=== PATIENT | male | born 1955 | race Caucasian/White ===

== ENCOUNTER 2022-01-01 18:32 | Inpatient (IN) | payer OTHER, MEDICARE ==
[2022-01-01] MEDS ORDERED: SODIUM CHLORIDE 0.9% 500 ML 500 ML IV STA (19:06)
[2022-01-01] MEDS ORDERED: ACETAMINOPHEN TAB 500 MG TAB PO STA (19:31)
[2022-01-01 19:58] LABS: Basophils # (A) 0.1 k/uL (0-0.2); Basophils % (A) 1 %; Eosinophils # (A) 0.5 k/uL (0-0.7); Eosinophils % (A) 5 %; HCT 38.8 % (39.0-53.0); HGB 12.7 gm/dL (13.0-17.5); Hypochromasia Slight; Lymphocytes % (A) 10 %; MCHC 32.7 g/dL (31.0-37.0); MCV 88.9 fL (80.0-100.0); Mean Platelet Volume 8.2; Monocytes # (A) 0.5 k/uL (0-1.0); Monocytes % (A) 5 %; Neutrophils # (A) 7.9 k/uL (1.3-7.7); Neutrophils % (A) 77 %; Platelet Count 208 k/uL (150-450); RBC 4.37 m/uL (4.30-5.90); RDW 15.2 % (11.5-15.5); WBC 10.3 k/uL (3.8-10.6)
[2022-01-01 20:08] LABS: Albumin 3.5 g/dL (3.5-5.0); Calcium 9.1 mg/dL (8.4-10.2); Magnesium 2.1 mg/dL (1.6-2.3); Phosphorus 5.2 mg/dL (2.5-4.5); Total Bilirubin 0.5 mg/dL (0.2-1.3); Total Protein 6.9 g/dL (6.3-8.2)
[2022-01-01 20:11] LABS: Potassium 5.1 mmol/L (3.5-5.1)
[2022-01-01] MEDS ORDERED: SODIUM CHLORIDE 0.9% 2,000 ML IV ONE (20:14)
[2022-01-01] MEDS ORDERED: SODIUM CHLORIDE 0.9% 1,000 ML IV SCH (20:15)
--- NOTE | 2022-01-01 20:47 | XR ---
EXAMINATION TYPE: XR chest 2V DATE OF EXAM: 01/01/2022 8:15 PM COMPARISON: None TECHNIQUE: XR chest 2V . CLINICAL INDICATION:Male, 66 years old with history of Weakness; FINDINGS: Lungs/Pleura: Bilateral scattered coarse reticular changes to the interstitium. There is a hazy appea ayden of the left lung base with focal, patchy consolidation within the left midlung. No evidence of pneumothorax or sizable pleural effusion. Pulmonary vascularity: Mild pulmonary vascular congestion. Heart/mediastinum: Cardiomediastinal silhouette is prominent in size. Atherosclerotic calcifications are seen in the aorta. Musculoskeletal: No acute osseous pathology. Midline sternotomy wires are noted and stable. IMPRESSION: 1. Left midlung interstitial opacity, concerning for acute infectious process such as pneumonia. 2. Prominent cardiac silhouette with mild pulmonary vascular congestion.
[2022-01-01 20:51] LABS: INR 0.9 (<1.2); Partial Thromboplastin Time 24.4 sec (22.0-30.0); Prothrombin Time 10.1 sec (9.0-12.0)
[2022-01-01] MEDS ORDERED: cefTRIAXone IN SWFI 1,000 MG/10 ML SYRINGE IVP STA (21:04)
[2022-01-01] MEDS ORDERED: AZITHROMYCIN 500 MG in SODIUM CHLORIDE 0.9% 250 ML IVPB ONE (21:30)
--- NOTE | 2022-01-01 21:55 | ED ---
General Adult HPI - General Chief complaint: Shortness of Breath Stated complaint: nausea Time Seen by Provider: 01/01/22 19:02 Source: patient, EMS Mode of arrival: EMS Limitations: no limitations - History of Present Illness Initial comments: Patient is a 66-year-old male presenting with chief complaint of generalized weakness. Patient was at the [facility] earlier today when he felt an overwhelming sense of weakness. He also admitted to some difficulty breathing and a productive cough. Patient has no known medical history, however patient is a poor historian. Patient admits to nausea. Denies chest pain, vomiting, abdominal pain, numbness, tingling, unilateral weakness, limb pain, dysuria, hematuria, flank pain, fever, chills. - Related Data Home Medications Medication Instructions Recorded Confirmed No Known Home Medications 01/01/22 01/01/22 Allergies Allergy/AdvReac Type Severity Reaction Status Date / Time No Known Allergies Allergy Verified 01/01/22 22:04 Review of Systems ROS Statement: Those systems with pertinent positive or pertinent negative responses have been documented in the HPI. ROS Other: All systems not noted in ROS Statement are negative. General Exam Limitations: no limitations General appearance: in no apparent distress, lethargic Head exam: Present: atraumatic, normocephalic, normal inspection Eye exam: Present: PERRL, EOMI, conjunctival injection. Absent: periorbital swelling, periorbital tenderness Neck exam: Present: normal inspection, full ROM Respiratory exam: Present: wheezes, rales. Absent: respiratory distress, rhonchi, stridor Cardiovascular Exam: Present: regular rate, normal rhythm, normal heart sounds. Absent: systolic murmur, diastolic murmur, rubs, gallop, clicks GI/Abdominal exam: Present: soft, distended. Absent: tenderness, guarding, rebound, rigid Neurological exam: Present: alert, oriented X3, CN II-XII intact Psychiatric exam: Present: normal affect, normal mood Skin exam: Present: warm, dry, intact, normal color. Absent: rash Course Vital Signs 01/01/22 18:41 Temperature 99.3 F Pulse Rate 100 Respiratory 20 Rate Blood Pressure 122/74 O2 Sat by Pulse 93 L Oximetry EKG Findings - EKG Comments: EKG Findings:: Rate of 99. MI interval difficult to determine, there appears to be frequent PACs causing this. EKG reading of atrial flutter does not appear to be accurate, there appears to be a P wave for a PAC in front of each QRS complex. No sawtooth pattern. QRS duration 105. QT/QTC 377/433. No ST deviation. T-wave inversion in aVL. Medical Decision Making - Medical Decision Making Patient is a 66-year-old male presenting with chief complaint of generalized weakness, difficulty breathing, nonproductive cough. On examination there are some wheezes and rales heard on auscultation. EKG is slightly tachycardic with rate of 99, there appeared to be frequent PACs. Creatinine 3.90 and BUN 64, will hydrate. Chest x-ray is suggestive of pneumonia, treated with azithromycin and Rocephin. Phosphorus 5.2. Troponin 0.024. BNP 3930. Patient will be admitted for pneumonia and BO. I spoke with Dr. Nails who agreed to admit the patient. I discussed these findings with plan with the patient he was agreeable. I discussed this case with my attending Dr. Mccann. - Lab Data Result diagrams: 01/01/22 19:48 01/01/22 19:48 Lab Results 01/01/22 01/01/22 01/01/22 Range/Units 19:48 19:48 19:48 WBC 10.3 (3.8-10.6) k/uL RBC 4.37 (4.30-5.90) m/uL Hgb 12.7 L (13.0-17.5) gm/dL Hct 38.8 L (39.0-53.0) % MCV 88.9 (80.0-100.0) fL MCH 29.0 (25.0-35.0) pg MCHC 32.7 (31.0-37.0) g/dL RDW 15.2 (11.5-15.5) % Plt Count 208 (150-450) k/uL MPV 8.2 Neutrophils % 77 % Lymphocytes % 10 % Monocytes % 5 % Eosinophils % 5 % Basophils % 1 % Neutrophils # 7.9 H (1.3-7.7) k/uL Lymphocytes # 1.0 (1.0-4.8) k/uL Monocytes # 0.5 (0-1.0) k/uL Eosinophils # 0.5 (0-0.7) k/uL Basophils # 0.1 (0-0.2) k/uL Hypochromasia Slight PT 10.1 (9.0-12.0) sec INR 0.9 (<1.2) APTT 24.4 (22.0-30.0) sec Sodium 137 (137-145) mmol/L Potassium 5.1 (3.5-5.1) mmol/L Chloride 102 (98-107) mmol/L Carbon Dioxide 23 (22-30) mmol/L Anion Gap 12 mmol/L BUN 64 H (9-20) mg/dL Creatinine 3.98 H (0.66-1.25) mg/dL Est GFR (CKD-EPI)AfAm 17 (>60 ml/min/1.73 sqM) Est GFR (CKD-EPI)NonAf 15 (>60 ml/min/1.73 sqM) Glucose 264 H (74-99) mg/dL Plasma Lactic Acid Silas (0.7-2.0) mmol/L Calcium 9.1 (8.4-10.2) mg/dL Phosphorus 5.2 H (2.5-4.5) mg/dL Magnesium 2.1 (1.6-2.3) mg/dL Total Bilirubin 0.5 (0.2-1.3) mg/dL AST 27 (17-59) U/L ALT 16 (4-49) U/L Alkaline Phosphatase 90 (38-126) U/L Troponin I (0.000-0.034) ng/mL NT-Pro-B Natriuret Pep pg/mL Total Protein 6.9 (6.3-8.2) g/dL Albumin 3.5 (3.5-5.0) g/dL Coronavirus (PCR) (Not Detectd) 01/01/22 01/01/22 01/01/22 Range/Units 19:48 19:48 19:48 WBC (3.8-10.6) k/uL RBC (4.30-5.90) m/uL Hgb (13.0-17.5) gm/dL Hct (39.0-53.0) % MCV (80.0-100.0) fL MCH (25.0-35.0) pg MCHC (31.0-37.0) g/dL RDW (11.5-15.5) % Plt Count (150-450) k/uL MPV Neutrophils % % Lymphocytes % % Monocytes % % Eosinophils % % Basophils % % Neutrophils # (1.3-7.7) k/uL Lymphocytes # (1.0-4.8) k/uL Monocytes # (0-1.0) k/uL Eosinophils # (0-0.7) k/uL Basophils # (0-0.2) k/uL Hypochromasia PT (9.0-12.0) sec INR (<1.2) APTT (22.0-30.0) sec Sodium (137-145) mmol/L Potassium (3.5-5.1) mmol/L Chloride (98-107) mmol/L Carbon Dioxide (22-30) mmol/L Anion Gap mmol/L BUN (9-20) mg/dL Creatinine (0.66-1.25) mg/dL Est GFR (CKD-EPI)AfAm (>60 ml/min/1.73 sqM) Est GFR (CKD-EPI)NonAf (>60 ml/min/1.73 sqM) Glucose (74-99) mg/dL Plasma Lactic Acid Silas 1.4 (0.7-2.0) mmol/L Calcium (8.4-10.2) mg/dL Phosphorus (2.5-4.5) mg/dL Magnesium (1.6-2.3) mg/dL Total Bilirubin (0.2-1.3) mg/dL AST (17-59) U/L ALT (4-49) U/L Alkaline Phosphatase (38-126) U/L Troponin I 0.024 (0.000-0.034) ng/mL NT-Pro-B Natriuret Pep 3930 pg/mL Total Protein (6.3-8.2) g/dL Albumin (3.5-5.0) g/dL Coronavirus (PCR) (Not Detectd) 01/01/22 Range/Units 19:48 WBC (3.8-10.6) k/uL RBC (4.30-5.90) m/uL Hgb (13.0-17.5) gm/dL Hct (39.0-53.0) % MCV (80.0-100.0) fL MCH (25.0-35.0) pg MCHC (31.0-37.0) g/dL RDW (11.5-15.5) % Plt Count (150-450) k/uL MPV Neutrophils % % Lymphocytes % % Monocytes % % Eosinophils % % Basophils % % Neutrophils # (1.3-7.7) k/uL Lymphocytes # (1.0-4.8) k/uL Monocytes # (0-1.0) k/uL Eosinophils # (0-0.7) k/uL Basophils # (0-0.2) k/uL Hypochromasia PT (9.0-12.0) sec INR (<1.2) APTT (22.0-30.0) sec Sodium (137-145) mmol/L Potassium (3.5-5.1) mmol/L Chloride (98-107) mmol/L Carbon Dioxide (22-30) mmol/L Anion Gap mmol/L BUN (9-20) mg/dL Creatinine (0.66-1.25) mg/dL Est GFR (CKD-EPI)AfAm (>60 ml/min/1.73 sqM) Est GFR (CKD-EPI)NonAf (>60 ml/min/1.73 sqM) Glucose (74-99) mg/dL Plasma Lactic Acid Silas (0.7-2.0) mmol/L Calcium (8.4-10.2) mg/dL Phosphorus (2.5-4.5) mg/dL Magnesium (1.6-2.3) mg/dL Total Bilirubin (0.2-1.3) mg/dL AST (17-59) U/L ALT (4-49) U/L Alkaline Phosphatase (38-126) U/L Troponin I (0.000-0.034) ng/mL NT-Pro-B Natriuret Pep pg/mL Total Protein (6.3-8.2) g/dL Albumin (3.5-5.0) g/dL Coronavirus (PCR) Not Detected (Not Detectd) Disposition Clinical Impression: Pneumonia, BO (acute kidney injury) Disposition: ADMITTED IP TO THIS HOSP Condition: Fair Referrals: [facility],Clinic [Primary Care Provider] - 1-2 days Time of Disposition: 21:56 Decision to Admit Reason: Admit from EC Decision Date: 01/01/22 Decision Time: 21:56
[2022-01-01] MEDS ORDERED: ACETAMINOPHEN TAB 325 MG TAB PO PRN (21:56)
[2022-01-01] MEDS ORDERED: NALOXONE 0.4 MG/ML 1 ML VIAL IV PRN (21:56)
[2022-01-01] MEDS ORDERED: IPRATROPIUM-ALBUTEROL 3 ML NEB INHALATION STA (22:19)
--- NOTE | 2022-01-02 03:00 | P.HPIM ---
History of Present Illness H&P Date: 01/01/22 Chief Complaint: SOB , weakness 66 year old male , with CKD unknown baseline, DM , quadruple bypass patient did not want to come today or stay at the hospital. 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 he declined calling ambulance and drove himself here for evaluation. he is very poor historian. and provides very limited history he reports being homeless, but moved into a motel a year ago, he claims to be compliant with his meds, which he does not recall. he reports history of CKD with unknown baseline. and CHF. he denies any smoking , illicit drugs or alcohol . he reports some progressive SOB over long time, and generalized weakness over past few weeks. he is experiencing exertional dyspnea , and orthopnea. but denies any chest pain or coughing, he denies any fever , chills, nausea or vomiting denies any URI symptoms, denies abd pain , nausea or vomiting, denies any GI bleeding, or changes with his bowel or urinary habits. he denies any recent travel, hospital stay , or history of cancer or blood clots. workup in the ED showed no fever, normal WBC, elevated BUN Cr unknown baseline. COVID negative CXR showed pulmonary vascular congestion Review of Systems Pertinent positives as noted in HPI. All other systems were reviewed and are negative Past Medical History Past Medical History: Diabetes Mellitus, Hyperlipidemia, Hypertension History of Any Multi-Drug Resistant Organisms: None Reported Past Surgical History: Coronary Bypass/CABG Additional Past Surgical History / Comment(s): CABG X3 Past Psychological History: No Psychological Hx Reported Smoking Status: Unknown if ever smoked - Past Family History family Additional Family Medical History / Comment(s): dementia and cancer in his mother and father respectively Medications and Allergies Home Medications Medication Instructions Recorded Confirmed Type No Known Home Medications 01/01/22 01/01/22 History Allergies Allergy/AdvReac Type Severity Reaction Status Date / Time No Known Allergies Allergy Verified 01/01/22 22:04 Physical Exam Vitals: Vital Signs Temp Pulse Resp BP Pulse Ox 01/02/22 00:16 89 17 149/87 98 01/02/22 00:08 100 01/01/22 23:46 100 01/01/22 18:41 99.3 F 100 20 122/74 93 L Intake and Output 01/01/22 01/01/22 01/02/22 14:59 22:59 06:59 Other: Weight 158.757 kg 158.757 kg Constitutional: No acute distress, very hard of hearing, disheveled Eyes: Anicteric sclerae, moist conjunctiva, Pupils equal round reactive to light ENMT: NC/AT Oropharynx clear, no erythema, or exudates Neck: Supple, no masses, or JVD No carotid bruits No thyromegaly Lungs: decrease breath sounds at lung bases with inspiratory rales Clear to percussion Normal respiratory effort, no accessory muscle use Cardiovascular: Heart regular in rate and rhythm, No murmurs, gallops, or rubs +2 peripheral edema Abdominal: Soft, obese limiting exam Nontender, no guarding, rebound or rigidity Abdomen moving with respiration Normoactive bowel sounds No palpable mass No abdominal wall hernia noted Skin: Normal temperature, tone, texture, turgor No induration No subcutaneous nodules No rash, lesions No ulcers Extremities: No digital cyanosis No clubbing Pedal pulses intact and symmetrical Radial pulses intact and symmetrical No calf tenderness Psychiatric: Alert and oriented to person, place and time Neuro Muscles Strength 4/5 in all 4 extremities Sensation to light touch grossly present throughout Cranial nerves II-XII grossly intact No focal sensory deficits Lymphatics: no palpable cervical or supraclavicular , or inguinal lymph nodes Results CBC & Chem 7: 01/01/22 19:48 01/01/22 19:48 Labs: Abnormal Lab Results - Last 24 Hours (Table) 01/01/22 01/01/22 Range/Units 19:48 19:48 Hgb 12.7 L (13.0-17.5) gm/dL Hct 38.8 L (39.0-53.0) % Neutrophils # 7.9 H (1.3-7.7) k/uL BUN 64 H (9-20) mg/dL Creatinine 3.98 H (0.66-1.25) mg/dL Glucose 264 H (74-99) mg/dL Phosphorus 5.2 H (2.5-4.5) mg/dL Thrombosis Risk Factor Assmnt - Choose All That Apply Each Factor Represents 1 point: Obesity (BMI >25), Swollen legs (current) Thrombosis Risk Factor Assessment Total Risk Factor Score: 2 Thrombosis Risk Factor Assessment Level: Low Risk Assessment and Plan Assessment: progressive shortness of breath, generalized weakness, fluid over load with advanced renal disease, rule out CHF d/c IVF initiate lasix 40 mg IVP BID daily weight check echocardiogram CXR showed pulmonary vascular congestion patient given antibiotics for suspected pneumonia , patient does not have full clinical picture, will discontinue antibiotics no fever, no leukocytosis , no report of coughing follow up cultures monitor vital signs covid negative BO on ?CKD unknown baseline avoid nephrotoxic meds monitor renal function and urine output DM , hyperglycemia insulin sliding scale check A1c chronic conditions CAD s/p quadruple bypass hypertension unknown home meds DVT PPX heparin sc tid full code
[2022-01-02 03:02] LABS: Glucose,Whole Blood 242 mg/dL (70-110)
[2022-01-02] MEDS ORDERED: INSULIN ASPART (NovoLOG) 100 UNIT/ML VIAL SQ ONE (03:17)
[2022-01-02] MEDS: FUROSEMIDE 10 MG/ML 4 ML VIAL IV SCH ×2 (03:41→08:31)
[2022-01-02 06:41] LABS: Basophils % (A) 1 %; Eosinophils # (A) 0.3 k/uL (0-0.7); Eosinophils % (A) 5 %; HCT 34.8 % (39.0-53.0); HGB 11.3 gm/dL (13.0-17.5); Hypochromasia Slight; Lymphocytes # (A) 1.1 k/uL (1.0-4.8); Lymphocytes % (A) 15 %; MCH 28.5 pg (25.0-35.0); MCHC 32.3 g/dL (31.0-37.0); MCV 88.2 fL (80.0-100.0); Mean Platelet Volume 8.2; Monocytes # (A) 0.6 k/uL (0-1.0); Monocytes % (A) 8 %; Neutrophils % (A) 70 %; Platelet Count 138 k/uL (150-450); RBC 3.95 m/uL (4.30-5.90); WBC 7.1 k/uL (3.8-10.6)
[2022-01-02 06:51] LABS: ALT 12 U/L (4-49); AST 14 U/L (17-59); African American GFR (CKD) 17 (>60 ml/min/1.73 sqM); Albumin 2.7 g/dL (3.5-5.0); Alkaline Phosphatase 88 U/L (38-126); Anion Gap 8 mmol/L; Blood Urea Nitrogen 58 mg/dL (9-20); Calcium 8.1 mg/dL (8.4-10.2); Carbon Dioxide 24 mmol/L (22-30); Chloride 106 mmol/L (98-107); Glucose 245 mg/dL (74-99); Non-African American GFR(CKD) 15 (>60 ml/min/1.73 sqM); Potassium 4.5 mmol/L (3.5-5.1); Sodium 138 mmol/L (137-145); Total Bilirubin <0.1 mg/dL (0.2-1.3); Total Protein 5.5 g/dL (6.3-8.2)
[2022-01-02 07:26] LABS: Amorphous Sediment,Urine Occasional /hpf; Appearance,Urine Cloudy (Clear); Bilirubin,Urine Negative (Negative); Blood,Urine Large (Negative); Color,Urine Light Yellow; Glucose,Urine (UA) 4+ (Negative); Hyaline Casts,Urine 4 /lpf (0-2); Ketones,Urine Negative (Negative); Leukocyte Esterase,Urine Negative (Negative); Mucus,Urine Rare /hpf; Nitrite,Urine Negative (Negative); Protein,Urine 3+ (Negative); RBC,Urine 36 /hpf (0-5); Specific Gravity,Urine 1.012 (1.001-1.035); Squamous Epithelial Cell,Urine 1 /hpf (0-4); Urobilinogen,Urine <2.0 mg/dL (<2.0); WBC,Urine 3 /hpf (0-5)
[2022-01-02 07:49] LABS: Glucose,Whole Blood 241 mg/dL (70-110)
[2022-01-02] MEDS ORDERED: HEPARIN SODIUM,PORCINE/PF 5,000 UNIT/0.5 ML SYRINGE SQ SCH (08:00)
[2022-01-02] MEDS: INSULIN ASPART (NovoLOG) 100 UNIT/ML VIAL SQ SCH ×2 (08:31→13:19)
[2022-01-02 08:36] VITALS: BP 182/92; PULSE 82; RESP 20; TEMP 98.2
[2022-01-02] MEDS ORDERED: METOPROLOL SUCCINATE (ER) 25 MG TAB.ER.24H PO SCH (09:00)
[2022-01-02] MEDS ORDERED: APIXABAN 5 MG TAB PO SCH (09:00)
[2022-01-02] MEDS ORDERED: ASPIRIN 81 MG PO SCH (09:00)
--- NOTE | 2022-01-02 11:11 | P.CRDCN ---
History of Present Illness Consult date: 01/02/22 Consult reason: shortness of breath History of present illness: The patient is a 66-year-old male who presented to the emergency room with increased shortness of breath. The patient is a poor historian and states he's been short of breath for quite some time, however recently worsened. 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 He is unsure of his home medication regimen. He states he is currently not having any chest pain or chest pressure. DIAGNOSTICS: EKG shows rate controlled atrial fibrillation Chest x-ray shows left midlung interstitial opacity and mild pulmonary vascular congestion Lab data: WBC 7.1, hemoglobin 11.3, hematocrit 34.8, platelet 138, sodium 138, potassium 4.5, BUN 58, creatinine 3.95, AST 12, ALT 88, troponin 0.02, BNP 3930 PAST MEDICAL HISTORY: Diabetes, coronary artery disease REVIEW OF SYSTEMS: No fever or chills. No cough or expectoration. No diaphoresi s. Patient denies headache, dizziness, blurred vision, double vision. Patient denies any stomach discomfort. No nausea, vomiting. No hematochezia. No hematemesis. Denies any black stools or blood in his stools. Denies dysuria or hematuria. No muscle weakness or numbness. No chest pain. PHYSICAL EXAMINATION: This is a 66-year-old obese male in no apparent distress at the time of my examination. HEENT: Head is atraumatic, normocephalic. Pupils are equal, round. Sclerae anicteric. Conjunctivae are clear. Mucous membranes of the mouth are moist. There is no jugular venous distention. No carotid bruit is heard. CHEST EXAMINATION: Lungs are diminished to auscultation. No chest wall tenderness is noted on palpation or with deep breathing. HEART EXAMINATION: Iregular rate and rhythm. S1, S2 heard. No murmurs, gallops or rub. ABDOMEN: Soft, nontender. Bowel sounds are heard. No organomegaly noted. EXTREMITIES: Weak peripheral pulses. +2 pitting peripheral edema and no calf tenderness noted. NEUROLOGIC EXAMINATION: Patient is awake, alert and oriented x2. FINAL ASSESSMENT AND PLAN: Shortness of breath, multifactorial, CHF versus pulmonary etiology Atrial fibrillation, rate controlled History of coronary artery disease History of diabetes Chronic kidney disease PLAN: Start the patient on Eliquis 5 mg twice daily. [facility], therefore this medication should be covered Start low-dose beta rohini Start aspirin and statin Echocardiogram pending Further recommendations based on clinical course I am dictating on behalf of Dr Cristhian Reich's history/physical and assessment/plan. Past Medical History Past Medical History: Diabetes Mellitus, Hyperlipidemia, Hypertension History of Any Multi-Drug Resistant Organisms: None Reported Past Surgical History: Coronary Bypass/CABG Additional Past Surgical History / Comment(s): CABG X3 Past Psychological History: No Psychological Hx Reported Smoking Status: Unknown if ever smoked - Past Family History family Additional Family Medical History / Comment(s): dementia and cancer in his mother and father respectively Medications and Allergies Home Medications Medication Instructions Recorded Confirmed Type No Known Home Medications 01/01/22 01/01/22 History Allergies Allergy/AdvReac Type Severity Reaction Status Date / Time No Known Allergies Allergy Verified 01/01/22 22:04 Physical Exam Vitals: Vital Signs Temp Pulse Pulse Resp BP BP Pulse Ox 01/02/22 08:00 98.2 F 82 20 182/92 91 L 01/02/22 02:00 97.2 F L 53 L 17 156/73 94 L 01/02/22 00:16 89 17 149/87 98 01/02/22 00:08 100 01/01/22 23:46 100 01/01/22 18:41 99.3 F 100 20 122/74 93 L Intake and Output 01/01/22 01/02/22 01/02/22 22:59 06:59 14:59 Intake Total 200 Output Total 300 Balance -100 Intake: Oral 200 Output: Urine 300 Other: Voiding Method Toilet Toilet Urinal Urinal Weight 158.757 kg 158.757 kg Results 01/02/22 06:08 01/02/22 06:08 Cardiac Enzymes 01/01/22 01/01/22 01/02/22 Range/Units 19:48 19:48 06:08 AST 27 14 L (17-59) U/L Troponin I 0.024 (0.000-0.034) ng/mL Coagulation 01/01/22 Range/Units 19:48 PT 10.1 (9.0-12.0) sec APTT 24.4 (22.0-30.0) sec CBC 01/01/22 01/02/22 Range/Units 19:48 06:08 WBC 10.3 7.1 (3.8-10.6) k/uL RBC 4.37 3.95 L (4.30-5.90) m/uL Hgb 12.7 L 11.3 L (13.0-17.5) gm/dL Hct 38.8 L 34.8 L (39.0-53.0) % Plt Count 208 138 L (150-450) k/uL Comprehensive Metabolic Panel 01/01/22 01/02/22 Range/Units 19:48 06:08 Sodium 137 138 (137-145) mmol/L Potassium 5.1 4.5 (3.5-5.1) mmol/L Chloride 102 106 (98-107) mmol/L Carbon Dioxide 23 24 (22-30) mmol/L BUN 64 H 58 H (9-20) mg/dL Creatinine 3.98 H 3.95 H (0.66-1.25) mg/dL Glucose 264 H 245 H (74-99) mg/dL Calcium 9.1 8.1 L (8.4-10.2) mg/dL AST 27 14 L (17-59) U/L ALT 16 12 (4-49) U/L Alkaline Phosphatase 90 88 (38-126) U/L Total Protein 6.9 5.5 L (6.3-8.2) g/dL Albumin 3.5 2.7 L (3.5-5.0) g/dL Current Medications Generic Name Dose Route Start Last Admin Trade Name Freq PRN Reason Stop Dose Admin Acetaminophen 650 mg 01/01/22 21:56 Acetaminophen Tab 325 Mg Tab PO Q6HR PRN Mild Pain or Fever > 100.5 Apixaban 5 mg 01/02/22 09:00 01/02/22 10:31 Apixaban 5 Mg Tab PO 5 mg BID NADER Administration Protocol Aspirin 81 mg 01/02/22 09:00 01/02/22 10:31 Aspirin 81 Mg PO 81 mg DAILY NADER Administration Furosemide 40 mg 01/02/22 02:44 01/02/22 08:31 Furosemide 10 Mg/Ml 4 Ml Vial IV 40 mg Q12HR NADER Administration Insulin Aspart 0 unit 01/02/22 07:30 01/02/22 08:31 Insulin Aspart (Novolog) 100 Unit/Ml Vial SQ 4 unit ACHS NADER Administration Protocol Metoprolol Succinate 25 mg 01/02/22 09:00 01/02/22 10:31 Metoprolol Succinate (Er) 25 Mg Tab.Er.24h PO 25 mg DAILY NADER Administration Naloxone HCl 0.2 mg 01/01/22 21:56 Naloxone 0.4 Mg/Ml 1 Ml Vial IV Q2M PRN Opioid Reversal Intake and Output 01/01/22 01/02/22 01/02/22 22:59 06:59 14:59 Intake Total 200 Output Total 300 Balance -100 Intake: Oral 200 Output: Urine 300 Other: Voiding Method Toilet Toilet Urinal Urinal Weight 158.757 kg 158.757 kg 01/02/22 06:08 01/02/22 06:08
--- NOTE | 2022-01-02 11:22 | P.NPCON ---
History of Present Illness - Reason for Consult acute renal failure - History of Present Illness Patient is a 66-year-old male with history of type 2 diabetes coronary artery disease and obesity. He is admitted to the hospital with complaints of increased weakness while he was at [facility]. Patient stated that he was so weak that he could not get up. He denied any lightheadedness or dizziness. Patient admits to history of chronic kidney disease but previous labs not available for comparison. Serum creatinine was 3.9 on admission and remains the same today. Patient is currently being diuresed for volume overload. Blood pressure has not been low O2 sats of 91-94% on room air No history of NSAIDs prior to admission Currently voiding in the urinal Review of Systems As per HPI Past Medical History Past Medical History: Diabetes Mellitus, Hyperlipidemia, Hypertension History of Any Multi-Drug Resistant Organisms: None Reported Past Surgical History: Coronary Bypass/CABG Additional Past Surgical History / Comment(s): CABG X3 Past Psychological History: No Psychological Hx Reported Smoking Status: Unknown if ever smoked - Past Family History family Additional Family Medical History / Comment(s): dementia and cancer in his mother and father respectively Medications and Allergies Home Medications Medication Instructions Recorded Confirmed Type No Known Home Medications 01/01/22 01/01/22 History Allergies Allergy/AdvReac Type Severity Reaction Status Date / Time No Known Allergies Allergy Verified 01/01/22 22:04 Physical Exam Vitals: Vital Signs Temp Pulse Pulse Resp BP BP Pulse Ox 01/02/22 08:00 98.2 F 82 20 182/92 91 L 01/02/22 02:00 97.2 F L 53 L 17 156/73 94 L 01/02/22 00:16 89 17 149/87 98 01/02/22 00:08 100 01/01/22 23:46 100 01/01/22 18:41 99.3 F 100 20 122/74 93 L Intake and Output 01/01/22 01/02/22 01/02/22 22:59 06:59 14:59 Intake Total 200 Output Total 300 Balance -100 Intake: Oral 200 Output: Urine 300 Other: Voiding Method Toilet Toilet Urinal Urinal Weight 158.757 kg 158.757 kg Patient is awake, comfortable Morbidly obese Alert oriented 3 Examination of the heart S1 and S2 Examination of the lungs bilateral breath sounds are heard Abdomen is soft morbidly obese Examination of lower extremity shows chronic skin changes and edema 2+ bilaterally APPLICATION CHEMIST exam grossly intact Results - Lab Results Most recent lab results Calcium 8.1 mg/dL (8.4-10.2) L 01/02/22 06:08 Phosphorus 5.2 mg/dL (2.5-4.5) H 01/01/22 19:48 Magnesium 2.1 mg/dL (1.6-2.3) 01/01/22 19:48 01/02/22 06:08 01/02/22 06:08 Assessment and Plan Assessment: 1. Acute kidney injury on top of chronic kidney disease. Patient's baseline renal function not known. Serum creatinine has not changed much since yesterday. UA shows proteinuria 3+ with large blood. We'll check ultrasound of the kidneys and rule out urine retention 2. Chronic kidney disease with unknown baseline possibly stage IV. Etiology is likely diabetic kidney disease. 3. Volume overload currently being diuresed 4. Morbid obesity 5. Microscopic hematuria with proteinuria, rule out underlying GN Plan: Continue with IV Lasix Check ultrasound of the kidneys Check bladder scan rule out retention Check baseline serologies Try to obtain previous labs to assess patient's baseline renal function Follow-up on echocardiogram results Patient will need follow-up as outpatient for CK D Thank you for the consultation, we'll continue to follow the patient with you during his hospitalization.
[2022-01-02 12:18] LABS: Glucose,Whole Blood 224 mg/dL (70-110)
--- NOTE | 2022-01-02 13:18 | P.PN ---
Subjective Progress Note Date: 01/02/22 Principal diagnosis: dyspnea Hospital course: 66-year-old male with history of chronic kidney disease with an unknown stage, diabetes, cardiac bypass, hypertension and hyperlipidemia presenting with progressive shortness of breath and generalized weakness for the last few weeks. Patient had been complaining of exertional dyspnea and orthopnea. In the ED, workup demonstrated elevated BUN and creatinine with unknown baseline. Chest x- ray consistent with pulmonary auscultation. Being admitted for CHF exacerbation versus fluid overload secondary to advanced renal disease. Pending evaluation by cardiology and nephrology. Subjective: Patient seen and examined at bedside. Patient claims that his shortness of breath about the same. Patient gets most of his care at a [place] facility. However, he has not had any follow-up or picked up his medications for over 1 month. Patient is poor historian. He currently denies any chest pain, nausea vomiting,, pain, diarrhea, or education, or urinary complaints. He claims that he makes small amounts of urine. Pertinent positives and negatives as discussed above, a complete review of systems was performed and all other systems are negative. General: nontoxic, no distress, appears at stated age, morbidly obese Derm: warm, dry Head: atraumatic, normocephalic, symmetric Eyes: EOMI, no lid lag, anicteric sclera Mouth: no lip lesion, mucus membranes moist Cardiovascular: S1S2 reg, no murmur, Lungs: Bibasilar rales, no accessory muscle use Abdominal: soft, nontender to palpation, no guarding, no appreciable or ganomegaly Ext: no gross muscle atrophy, 2+ pitting edema up to distal knees bilaterally, no contractures Neuro: CN II-XI grossly intact, no focal neuro deficits Psych: Alert, oriented, appropriate affect Assessment and plan: Progressive dyspnea on exertion Generalized weakness Pulmonary edema Rule out congestive heart failure Advanced renal disease -unlikely to be pneumonia based on clinical picture -On IV Lasix 40 twice a day -Daily weights, ins and outs -Echo pending -Renal and cardiology BO on possible CKD -Unknown baseline, currently at 3.95 -Continue to monitor urine output and renal function Atrial tachycardia/flutter -New-onset -Started on metoprolol and eliquis Diabetes with hyperglycemia -On sliding scale insulin -A1c pending Chronic conditions-not taking any medications CAD status post CABG -on aspirin, we will need to add statin Hypertension Homelessness DVT prophylaxis: On eliquis Full code Disposition: Likely be discharged once respiratory status improves, will need follow-up as an outpatient by PCP and likely cardiology and nephrology. Objective - Vital Signs Vital signs: Vital Signs Temp 98.2 F 01/02/22 08:00 Pulse 82 01/02/22 08:00 Resp 20 01/02/22 08:00 BP 182/92 01/02/22 08:00 Pulse Ox 91 L 01/02/22 08:00 FiO2 Intake & Output 01/01/22 01/02/22 01/02/22 18:59 06:59 18:59 Intake Total 200 Output Total 300 Balance -100 Weight 158.757 kg 158.757 kg Intake: Oral 200 Output: Urine 300 Other: Voiding Method Toilet Urinal - Labs CBC & Chem 7: 01/02/22 06:08 01/02/22 06:08 Labs: Abnormal Lab Results - Last 24 Hours (Table) 01/01/22 01/01/22 01/02/22 Range/Units 19:48 19:48 03:01 RBC (4.30-5.90) m/uL Hgb 12.7 L (13.0-17.5) gm/dL Hct 38.8 L (39.0-53.0) % Plt Count (150-450) k/uL Neutrophils # 7.9 H (1.3-7.7) k/uL BUN 64 H (9-20) mg/dL Creatinine 3.98 H (0.66-1.25) mg/dL Glucose 264 H (74-99) mg/dL POC Glucose (mg/dL) 242 H (70-110) mg/dL Calcium (8.4-10.2) mg/dL Phosphorus 5.2 H (2.5-4.5) mg/dL Total Bilirubin (0.2-1.3) mg/dL AST (17-59) U/L Total Protein (6.3-8.2) g/dL Albumin (3.5-5.0) g/dL Urine Protein (Negative) Urine Glucose (UA) (Negative) Urine Blood (Negative) Urine RBC (0-5) /hpf Amorphous Sediment (None) /hpf Hyaline Casts (0-2) /lpf Urine Mucus (None) /hpf 09/0401/02/22 01/02/22 Range/Units 05:20 06:08 06:08 RBC 3.95 L (4.30-5.90) m/uL Hgb 11.3 L (13.0-17.5) gm/dL Hct 34.8 L (39.0-53.0) % Plt Count 138 L (150-450) k/uL Neutrophils # (1.3-7.7) k/uL BUN 58 H (9-20) mg/dL Creatinine 3.95 H (0.66-1.25) mg/dL Glucose 245 H (74-99) mg/dL POC Glucose (mg/dL) (70-110) mg/dL Calcium 8.1 L (8.4-10.2) mg/dL Phosphorus (2.5-4.5) mg/dL Total Bilirubin <0.1 L (0.2-1.3) mg/dL AST 14 L (17-59) U/L Total Protein 5.5 L (6.3-8.2) g/dL Albumin 2.7 L (3.5-5.0) g/dL Urine Protein 3+ H (Negative) Urine Glucose (UA) 4+ H (Negative) Urine Blood Large H (Negative) Urine RBC 36 H (0-5) /hpf Amorphous Sediment Occasional H (None) /hpf Hyaline Casts 4 H (0-2) /lpf Urine Mucus Rare H (None) /hpf 01/02/22 Range/Units 07:48 RBC (4.30-5.90) m/uL Hgb (13.0-17.5) gm/dL Hct (39.0-53.0) % Plt Count (150-450) k/uL Neutrophils # (1.3-7.7) k/uL BUN (9-20) mg/dL Creatinine (0.66-1.25) mg/dL Glucose (74-99) mg/dL POC Glucose (mg/dL) 241 H (70-110) mg/dL Calcium (8.4-10.2) mg/dL Phosphorus (2.5-4.5) mg/dL Total Bilirubin (0.2-1.3) mg/dL AST (17-59) U/L Total Protein (6.3-8.2) g/dL Albumin (3.5-5.0) g/dL Urine Protein (Negative) Urine Glucose (UA) (Negative) Urine Blood (Negative) Urine RBC (0-5) /hpf Amorphous Sediment (None) /hpf Hyaline Casts (0-2) /lpf Urine Mucus (None) /hpf
--- NOTE | 2022-01-02 13:20 | P.DS ---
Providers Date of admission: 01/01/22 21:17 Expected date of discharge: 01/02/22 (AMA) Attending physician: Ashlyn Nails MD Consults: 01/01/22 21:56 Consult Physician Urgent Consulting Provider: Nirmala Us Consult Reason/Comments: BO Do you want consulting provider notified?: Yes 01/02/22 03:18 Consult Physician Routine Consulting Provider: Francisco Carrera Consult Reason/Comments: arrhythmia, ?CHF Do you want consulting provider notified?: Yes, Notify in am Primary care physician: [facility] Hospital Course: 66-year-old male with history of chronic kidney disease with an unknown stage, diabetes, cardiac bypass, hypertension and hyperlipidemia presenting with progressive shortness of breath and generalized weakness for the last few weeks. Patient had been complaining of exertional dyspnea and orthopnea. In the ED, workup demonstrated elevated BUN and creatinine with unknown baseline. Chest x- ray consistent with pulmonary auscultation. Being admitted for CHF exacerbation versus fluid overload secondary to advanced renal disease. Patient leaving AMA. Risks of leaving AMA discussed with the patient, including worsening acute illness and even . Patient verbalizes understanding. He claims that he has a cat at his motel that he is taking care of and needs to go. Patient Condition at Discharge: Poor Plan - Discharge Summary New Discharge Prescriptions: No Action No Known Home Medications Discharge Medication List No Known Home Medications 01/01/22 [History] Follow up Appointment(s)/Referral(s): [facility] [Primary Care Provider] - 1-2 days Discharge Disposition: Left Against Medical Advice
== END 2022-01-02 14:41 | disposition left against medical advice (07) | DRG 292 ==
LOC: EC 18:32 → 5NMEDONC 21:17 → 6NMEDSUR 23:26 → 5NMEDONC 23:28 → 6NMEDSUR 23:38
PROVIDERS: ADMIT Internal Medicine; ATTEND Internal Medicine
DX: I13.0 Hypertensive heart and chronic kidney disease with heart failure and stage 1 through stage 4 chronic kidney disease, or unspecified chronic kidney disease (principal); I47.1 Supraventricular tachycardia; N17.9 Acute kidney failure, unspecified; N18.4 Chronic kidney disease, stage 4 (severe); Z68.41 Body mass index [BMI] 40.0-44.9, adult; E11.22 Type 2 diabetes mellitus with diabetic chronic kidney disease; I50.9 Heart failure, unspecified; E11.65 Type 2 diabetes mellitus with hyperglycemia; E66.01 Morbid (severe) obesity due to excess calories; I48.91 Unspecified atrial fibrillation; Z20.822 Contact with and (suspected) exposure to COVID-19; I25.10 Atherosclerotic heart disease of native coronary artery without angina pectoris; E78.5 Hyperlipidemia, unspecified; R31.29 Other microscopic hematuria; H91.90 Unspecified hearing loss, unspecified ear; Z53.29 Procedure and treatment not carried out because of patient's decision for other reasons; Z95.1 Presence of aortocoronary bypass graft; Z59.00 Homelessness unspecified
CPT/HCPCS: 36415; 71046; 80053; 81001; 83036; 83605; 83735; 83880; 84100; 84484; 85025; 85610; 85730; 87040; 87635; 96365; 96366; 96375; 99285

== ENCOUNTER 2022-05-30 07:09 | Emergency (ER) | payer OTHER, MEDICARE ==
[2022-05-30 07:21] VITALS: RESP 18; TEMP 98.3
[2022-05-30] MEDS ORDERED: ALTEPLASE 2 MG VIAL (CATHFLO) MISCELLANE ONE (07:36)
--- NOTE | 2022-05-30 07:55 | ED ---
General Adult HPI - General Chief complaint: Recheck/Abnormal Lab/Rx Stated complaint: Catheter Issues Time Seen by Provider: 05/30/22 07:29 Source: patient, EMS, RN notes reviewed Mode of arrival: EMS Limitations: no limitations - History of Present Illness Initial comments: 67-year-old presents from [facility] via EMS for evaluation of plug ged right-sided chest catheter. Patient states that he had this placed January here he states they attempted using for dialysis told him that was plugged. Patient denies any complaints otherwise denies fevers chills, shortness breath abdominal pain. - Related Data Home Medications Medication Instructions Recorded Confirmed No Known Home Medications 01/01/22 01/01/22 Allergies Allergy/AdvReac Type Severity Reaction Status Date / Time No Known Allergies Allergy Verified 01/01/22 22:04 Review of Systems ROS Statement: Those systems with pertinent positive or pertinent negative responses have been documented in the HPI. ROS Other: All systems not noted in ROS Statement are negative. Past Medical History Past Medical History: Diabetes Mellitus, Hyperlipidemia, Hypertension History of Any Multi-Drug Resistant Organisms: None Reported Past Surgical History: Coronary Bypass/CABG Additional Past Surgical History / Comment(s): CABG X3 Past Psychological History: No Psychological Hx Reported Smoking Status: Unknown if ever smoked - Past Family History family Additional Family Medical History / Comment(s): dementia and cancer in his mother and father respectively General Exam Limitations: no limitations General appearance: alert, in no apparent distress Head exam: Present: atraumatic, normocephalic, normal inspection Eye exam: Present: normal appearance, PERRL, EOMI. Absent: scleral icterus, conjunctival injection, periorbital swelling ENT exam: Present: normal exam, normal oropharynx, mucous membranes moist Neck exam: Present: normal inspection, full ROM. Absent: tenderness, meningismus, lymphadenopathy Respiratory exam: Present: normal lung sounds bilaterally, other (Right-sided chest permacath). Absent: respiratory distress, wheezes, rales, rhonchi, stridor Cardiovascular Exam: Present: regular rate, normal rhythm, normal heart sounds. Absent: systolic murmur, diastolic murmur, rubs, gallop, clicks Neurological exam: Present: alert Skin exam: Present: warm, dry, intact, normal color. Absent: rash Course Vital Signs 05/30/22 05/30/22 07:13 08:11 Temperature 98.3 F Pulse Rate 79 84 Respiratory 18 18 Rate Blood Pressure 162/76 130/57 O2 Sat by Pulse 100 99 Oximetry Medical Decision Making - Medical Decision Making Was pt. sent in by a medical professional or institution ([facility], [facility] [facility] [employer], urgent care, hospital, or group home...) When possible be specific @ -No Did you speak to anyone other than the patient for history (EMS, parent, family, police, friend...)? What history was obtained from this source @ -No Did you review nursing and triage notes (agree or disagree)? Why? @ -I reviewed and agree with nursing and triage notes Were old charts reviewed (outside hosp., previous admission, EMS record, old EKG, old radiological studies, urgent care reports/EKG's, group home records)? Report findings @ -Reviewed prior notes and labs from [facility] Differential Diagnosis (chest pain, altered mental status, abdominal pain women, abdominal pain men, vaginal bleeding, weakness, fever, dyspnea, syncope, headache, dizziness, GI bleed, back pain, seizure, CVA, palpatations, mental health)? @ -Clogged vascular access catheter EKG interpreted by me (3pts min.). @ -None X-rays interpreted by me (1pt min.). @ -None done CT interpreted by me (1pt min.). @ -None done U/S interpreted by me (1pt. min.). @ -None done What testing was considered but not performed or refused? (CT, X-rays, U/S, labs)? Why? @ -None What meds were considered but not given or refused? Why? @ -None Did you discuss the management of the patient with other professionals (professionals i.e. [facility], [employer], lab, RT, psych nurse, web content & social media manager, commissioned fire officer, teacher, access control officer, oil field caser)? Give summary @ -No Was smoking cessation discussed for >3mins.? @ -No Was critical care preformed (if so, how long)? @ -No Were there social determinants of health that impacted care today? How? (Homelessness, low income, unemployed, alcoholism, drug addiction, transportation, low edu. Level, literacy, decrease access to med. care, detention, rehab)? @ -No Was there de-escalation of care discussed even if they declined (Discuss DNR or withdrawal of care, Hospice)? DNR status @ -No What co-morbidities impacted this encounter? (DM, HTN, Smoking, COPD, CAD, Cancer, CVA, ARF, Chemo, Hep., AIDS, mental health diagnosis, sleep apnea, morbid obesity)? @ -Renal failure, diabetes, hypertension Was patient admitted / discharged? Hospital course, mention meds given and route, prescriptions, significant lab abnormalities, going to OR and other pertinent info. @ -Discharge patient's catheter was flushed and access by nurse with no complications. Patient was discharged back to [facility]. Undiagnosed new problem with uncertain prognosis? @ -No Drug Therapy requiring intensive monitoring for toxicity (Heparin, Nitro, Insulin, Cardizem)? @ -No Were any procedures done? @ -No Diagnosis/symptom? @ -Vascular catheter issues Acute, or Chronic, or Acute on Chronic? @ -Acute Uncomplicated (without systemic symptoms) or Complicated (systemic symptoms)? @ -Uncomplicated Side effects of treatment? @ -No Exacerbation, Progression, or Severe Exacerbation? @ -No Poses a threat to life or bodily function? How? (Chest pain, [place], [place], pneumonia, PE, COPD, DKA, ARF, appy, cholecystitis, CVA, Diverticulitis, Homicidal, Suicidal, threat to staff... and all critical care pts) @ -No Disposition Clinical Impression: Vascular catheter dysfunction Disposition: HOME SELF-CARE Condition: Stable Additional Instructions: Please return to the Emergency Department if symptoms worsen or any other concerns. Is patient prescribed a controlled substance at d/c from ED?: No Referrals: [facility],Clinic [REFERRING] - 1-2 days Time of Disposition: 09:14
[2022-05-30 11:24] VITALS: BP 170/88; PULSE 82
== END 2022-05-30 11:39 | disposition home or self-care (01) ==
LOC: EC 07:09
DX: T85.9XXA Unspecified complication of internal prosthetic device, implant and graft, initial encounter (principal); E11.9 Type 2 diabetes mellitus without complications; I10 Essential (primary) hypertension
CPT/HCPCS: 99284; J2997

== ENCOUNTER 2022-07-15 08:21 | Inpatient (IN) | payer OTHER, MEDICARE ==
--- NOTE | 2022-07-15 09:03 | ED ---
General Adult HPI - General Chief complaint: Altered Mental Status Stated complaint: AMS Time Seen by Provider: 07/15/22 08:21 Source: EMS, RN notes reviewed, old records reviewed Mode of arrival: EMS Limitations: no limitations - History of Present Illness Initial comments: This is a 67-year-old male who presents emergency department from [facility]. Patient comes over for altered mental status. Patient's CT of the head that showed no acute abnormality. Chest x-ray is normal. Patient's blood work was also sent with the patient. Low hemoglobin 7.7 but we have prior lab work in the last few months to compare to. Patient is unable to give any history no one else came with the patient that this is all history we have at this time. - Related Data Home Medications Medication Instructions Recorded Confirmed No Known Home Medications 01/01/22 01/01/22 Allergies Allergy/AdvReac Type Severity Reaction Status Date / Time No Known Allergies Allergy Verified 07/15/22 08:38 Review of Systems ROS Statement: Those systems with pertinent positive or pertinent negative responses have been documented in the HPI. ROS Other: All systems not noted in ROS Statement are negative. Past Medical History Past Medical History: Diabetes Mellitus, Hyperlipidemia, Hypertension History of Any Multi-Drug Resistant Organisms: None Reported Past Surgical History: Coronary Bypass/CABG Additional Past Surgical History / Comment(s): CABG X3 Past Psychological History: No Psychological Hx Reported Smoking Status: Unknown if ever smoked Past Alcohol Use History: Unable to Obtain Past Drug Use History: Unable to Obtain - Past Family History family Additional Family Medical History / Comment(s): dementia and cancer in his mother and father respectively General Exam - General Exam Comments Initial Comments: GENERAL: Patient is well-developed and well-nourished. Patient is nontoxic and well- hydrated and is in no acute distress. ENT: Neck is soft and supple. No significant lymphadenopathy is noted. Oropharynx is clear. Moist mucous membranes. Neck has full range of motion without eliciting any pain. EYES: The sclera were anicteric and conjunctiva were pink and moist. Extraocular movements were intact and pupils were equal round and reactive to light. Eyelids were unremarkable. PULMONARY: Unlabored respirations. Good breath sounds bilaterally. No audible rales rhonchi or wheezing was noted. CARDIOVASCULAR: There is a regular rate and rhythm without any murmurs gallops or rubs. ABDOMEN: Soft and nontender with normal bowel sounds. SKIN: Skin is clear with no lesions or rashes and otherwise unremarkable. NEUROLOGIC: Patient is alert and oriented 2. Cranial nerves II through XII are grossly intact. Motor and sensory are also intact. Normal speech, volume and content. Symmetrical smile. MUSCULOSKELETAL: Normal extremities with adequate strength and full range of motion. No lower extremity swelling or edema. No calf tenderness. LYMPHATICS: No significant lymphadenopathy is noted PSYCHIATRIC: Patient is altered difficult to get a good psychiatric history Limitations: no limitations Course Vital Signs 07/15/22 08:23 Temperature 97.1 F L Pulse Rate 56 L Respiratory 18 Rate Blood Pressure 152/92 O2 Sat by Pulse 100 Oximetry Medical Decision Making - Medical Decision Making Was pt. sent in by a medical professional or institution (, [place], SPECIAL DUTY NURSE, urgent care, hospital, or skilled nursing...) When possible be specific @ -Patient was transferred to us from [facility] Did you speak to anyone other than the patient for history (EMS, parent, family, police, friend...)? What history was obtained from this source @ -ER doc a list quite a bit of history and then EMS gave us the rest of the history patient is a unable to give any history Did you review nursing and triage notes (agree or disagree)? Why? @ -I reviewed and agree with nursing and triage notes Were old charts reviewed (outside hosp., previous admission, EMS record, old EKG, old radiological studies, urgent care reports/EKG's, skilled nursing records)? Report findings @ -I reviewed all labs and radiological studies from outside hospital. Differential Diagnosis (chest pain, altered mental status, abdominal pain women, abdominal pain men, vaginal bleeding, weakness, fever, dyspnea, syncope, headache, dizziness, GI bleed, back pain, seizure, CVA, palpatations, mental health, musculoskeletal)? @ -Differential Altered Mental Status: Hypoglycemia, DKA, hypercapnia, ETOH, overdose, CO poisoning, trauma, myxedema coma, HTN encephalopathy, infection, encephalitis, psychosis, intercranial hemorrhage, hepatic encephalopathy, meningitis, CVA, this is not meant to be an all-inclusive list EKG interpreted by me (3pts min.). @ -As above X-rays interpreted by me (1pt min.). @ -None done CT interpreted by me (1pt min.). @ -None done U/S interpreted by me (1pt. min.). @ -None done What testing was considered but not performed or refused? (CT, X-rays, U/S, labs)? Why? @ -None What meds were considered but not given or refused? Why? @ -None Did you discuss the management of the patient with other professionals (professionals i.e. Dr., PA, SPECIAL DUTY NURSE, lab, RT, psych nurse, social media sr strategy manager, retail store associate, teacher, community chest officer, field case manager)? Give summary @ -The ER doc talked to Dr. Key about transferring this patient. I spoke with Dr. Victor about admitting the patient he was in agreement Was smoking cessation discussed for >3mins.? @ -No Was critical care preformed (if so, how long)? @ -No Were there social determinants of health that impacted care today? How? (Homelessness, low income, unemployed, alcoholism, drug addiction, transportation, low edu. Level, literacy, decrease access to med. care, group home, rehab)? @ -No Was there de-escalation of care discussed even if they declined (Discuss DNR or withdrawal of care, Hospice)? DNR status @ -No What co-morbidities impacted this encounter? (DM, HTN, Smoking, COPD, CAD, Cancer, CVA, ARF, Chemo, Hep., AIDS, mental health diagnosis, sleep apnea, morbid obesity)? @ -None Was patient admitted / discharged? Hospital course, mention meds given and route, prescriptions, significant lab abnormalities, going to OR and other pertinent info. @ -I saw the patient in the emergency department reviewed all labs radiological studies I spoke with Dr. Victor he agreed to admit the patient admitted the patient wrote admitting orders I consulted nephrology and psych Undiagnosed new problem with uncertain prognosis? @ -No Drug Therapy requiring intensive monitoring for toxicity (Heparin, Nitro, Insulin, Cardizem)? @ -No Were any procedures done? @ -No Diagnosis/symptom? @ -Altered mental status Acute, or Chronic, or Acute on Chronic? @ -Acute Uncomplicated (without systemic symptoms) or Complicated (systemic symptoms)? @ -Chronic Side effects of treatment? @ -No Exacerbation, Progression, or Severe Exacerbation? @ -No Poses a threat to life or bodily function? How? (Chest pain, [place], [place], pneumonia, PE, COPD, DKA, ARF, appy, cholecystitis, CVA, Diverticulitis, Homicidal, Suicidal, threat to staff... and all critical care pts) @ -No Diagnosis/symptom? @ -Anemia Acute, or Chronic, or Acute on Chronic? @ -Chronic Uncomplicated (without systemic symptoms) or Complicated (systemic symptoms)? @ -Uncomplicated Side effects of treatment? @ -none Exacerbation, Progression, or Severe Exacerbation] @ -no Poses a threat to life or bodily function? @ -no Diagnosis/symptom? @ -Renal failure Acute, or Chronic, or Acute on Chronic? @ -Chronic Uncomplicated (without systemic symptoms) or Complicated (systemic symptoms)? @ -Complicated Side effects of treatment? @ -none Exacerbation, Progression, or Severe Exacerbation] @ -no Poses a threat to life or bodily function? @ -no Disposition Clinical Impression: Altered mental status Disposition: ADMITTED IP TO THIS HOSP Referrals: Donita Bautista DO [Primary Care Provider] - 1-2 days Time of Disposition: 09:19
[2022-07-15] MEDS ORDERED: SODIUM CHLORIDE 0.9% 1,000 ML IV ONE (09:19)
[2022-07-15] MEDS ORDERED: ACETAMINOPHEN TAB 325 MG TAB PO PRN (11:15)
[2022-07-15] MEDS ORDERED: ONDANSETRON 4 MG/2 ML VIAL IVP PRN (11:16)
[2022-07-15] MEDS ORDERED: LACTULOSE 20 GM/30 ML CUP PO PRN (11:16)
[2022-07-15] MEDS ORDERED: CALCIUM CARBONATE 500 MG CHEWABLE PO PRN (11:16)
[2022-07-15] MEDS ORDERED: NALOXONE 0.4 MG/ML 1 ML VIAL IV PRN (11:16)
[2022-07-15] MEDS ORDERED: LORazepam 0.5 MG TAB PO PRN (11:16)
[2022-07-15] MEDS ORDERED: DEXTROSE 50% SYRINGE 50 ML IVP PRN ×2 (11:17)
[2022-07-15 11:49] LABS: Glucose,Whole Blood 154 mg/dL (70-110)
[2022-07-15] MEDS: INSULIN DETEMIR (LEVEMIR) 100 UNIT/ML SYR SQ SCH (12:07)
[2022-07-15] MEDS: METOPROLOL TARTRATE 25 MG TAB PO SCH ×2 (12:08→20:13)
[2022-07-15] MEDS: CALCIUM ACETATE 667 MG TAB PO SCH ×2 (12:08→18:24)
[2022-07-15] MEDS: INSULIN ASPART (NovoLOG) 100 UNIT/ML VIAL SQ SCH ×4 (12:09→18:24)
[2022-07-15] MEDS: CARBAMIDE PEROXIDE 6.5% DROPS 15 ML BTL BOTH EARS SCH ×2 (14:39→20:50)
[2022-07-15] MEDS: hydrALAZINE HCL 25 MG TAB PO SCH ×2 (14:39→20:13)
--- NOTE | 2022-07-15 15:32 | P.HPIM ---
History of Present Illness H&P Date: 07/15/22 Chief Complaint: Altered mentation This is a 67-year-old patient, who is at the [facility]. Patient is very hard of hearing deaf was somewhat of a limited historian. Chronic stable medical conditions include atrial fibrillation, COPD, diabetes, GERD, hypertension, hyperlipidemia, obstructive sleep apnea, CK D on dialysis, BPH, coronary bypass. Normally patient is AO 3. He is also on hemodialysis. Patient denies any fever and chills. He has a cough with green sputum. Appetite is fair. No change in bowel pattern. Patient was initially sent in to [facility] with altered mentation and hallucinations. There is a questionable infiltrate on chest x- ray. Has his white count and no fever and no psychiatry is available at that facility patient was moved to our ER but accepted the patient. Patient came dozing off after giving a history. Review of systems: GEN.: Tired and lethargic EYES: None HEENT: None NECK: None RESPIRATORY: Cough increased sputum CARDIOVASCULAR: None GASTROINTESTINAL: None GENITOURINARY: None MUSCULOSKELETAL: None LYMPHATICS: None HEMATOLOGICAL: None PSYCHIATRY: Unable to determine what reported hallucinations NEUROLOGICAL: Wheelchair Past medical history to include: Atrial fibrillation, CHF, COPD, diabetes, GERD, hypertension, hyperlipidemia, obstructive sleep apnea, CAD, BPH, CAD with bypass Social history: Patient denies smoking. At [facility]. Uses a wheelchair Physical examination: VITAL SIGNS: 97.1, 56, 18, 152/92, 100% room air GENERAL: BMI 43.2, laying in bed lethargic but arousable. EYES: Pupils equal. Conjunctiva normal. HEENT: External appearance of nose and ears normal, oral cavity grossly normal. Decreased hearing especially in the left ear NECK: JVD not raised; masses not palpable. HEART: First and second heart sounds are normal; no edema. LUNGS: Respiratory rate increased; decreased breath sounds. ABDOMEN: Soft, nontender, liver spleen not palpable, no masses palpable. PSYCH: Patient knows that he is in the hospital, knows the year thinks is . MUSCULOSKELETAL:No Clubbing/cyanosis;muscles-grossly intact, OA NEUROLOGICAL: Cranial nerves grossly intact; no facial asymmetry, power and sensation grossly intact. LYMPHATICS: No lymph nodes palpable in the axilla and neck INVESTIGATIONS, reviewed in the clinical context: Assessment plan: -Acute mental status alteration. Seems encephalopathic. - Does have a cough with sputum production. Chest x-ray at [facility] showed infiltrate. Probable pneumonia. Suspect gram-negative organism Start IV ceftriaxone -End-stage kidney disease on hemodialysis Consult nephrology -Persistent atrial fibrillation, rate controlled Metoprolol, eliquis -Chronic congestive heart failure, EF not known Follow fluid status -COPD Albuterol when necessary -Diabetes mellitus type 2 chronically on insulin Follow Accu-Cheks -GERD PPI -Hyperlipidemia -Essential hypertension Lopressor. Hydralazine -BPH Proscar -CAD with a prior history of coronary bypass Lopressor -Reported hallucinations. Difficult to assess. Consults psychiatry Past Medical History Past Medical History: Atrial Fibrillation, Heart Failure, COPD, Diabetes Mellitus, GERD/Reflux, Hyperlipidemia, Hypertension, Sleep Apnea/CPAP/BIPAP Additional Past Medical History / Comment(s): CKD, BPH, History of Any Multi-Drug Resistant Organisms: None Reported Past Surgical History: Coronary Bypass/CABG Additional Past Surgical History / Comment(s): CABG X3 Past Psychological History: No Psychological Hx Reported Smoking Status: Unknown if ever smoked Past Alcohol Use History: Unable to Obtain Past Drug Use History: Unable to Obtain - Past Family History family Additional Family Medical History / Comment(s): dementia and cancer in his mothe r and father respectively Medications and Allergies Home Medications Medication Instructions Recorded Confirmed Type Acetaminophen Tab [Tylenol] 650 mg PO Q6H PRN 07/15/22 07/15/22 History Apixaban [Eliquis] 5 mg PO BID@0800,199907/15/22 07/15/22 History Calcium Acetate [Phoslo] 667 mg PO AC-TID 07/15/22 07/15/22 History Carbamide Peroxide [Debrox Otic] 5 drops BOTH EARS BID@1400,199907/15/22 07/15/22 History Famotidine 20 mg PO BID 07/15/22 07/15/22 History Finasteride [Proscar] 5 mg PO HS@199907/15/22 07/15/22 History INSULIN ASPART (NovoLOG) [NovoLOG 7 unit SQ AC-TID 07/15/22 07/15/22 History (formulary)] INSULIN ASPART (NovoLOG) [NovoLOG See Protocol SQ AC-TID 07/15/22 07/15/22 History (formulary)] Insulin Glargine,Hum.rec.anlog 20 units SQ DAILY@0800 07/15/22 07/15/22 History [Lantus Solostar Pen] Metoprolol Tartrate [Lopressor] 25 mg PO Q12HR@0800,199907/15/22 07/15/22 History Multivitamins, Thera [Multivitamin 1 tab PO DAILY@0800 07/15/22 07/15/22 History (formulary)] hydrALAZINE HCL [Apresoline] 25 mg PO TID@0600,1400,199907/15/22 07/15/22 History predniSONE See Taper PO DAILY@0800 07/15/22 07/15/22 History Allergies Allergy/AdvReac Type Severity Reaction Status Date / Time bee venom protein (honey bee) Allergy Unknown Verified 07/15/22 09:24 Physical Exam Vitals: Vital Signs Temp Pulse Resp BP Pulse Ox 07/15/22 09:49 56 L 20 156/90 96 07/15/22 08:23 97.1 F L 56 L 18 152/92 100 Intake and Output 07/14/22 07/15/22 07/15/22 22:59 06:59 14:59 Other: Weight 140.614 kg
--- NOTE | 2022-07-15 17:02 | XR ---
EXAMINATION TYPE: XR chest 2V DATE OF EXAM: 07/15/2022 COMPARISON: 07/15/2022 HISTORY: Cough TECHNIQUE: 2 views FINDINGS: There is right central venous catheter with tip in the superior vena cava. There are sterna l wires. There is mild pulmonary congestion. There is slight blunting right costophrenic angle. IMPRESSION: Mild pulmonary congestion and likely small right pleural effusion. This could be mild hea rt failure. Inspiration decreased slightly compared to exam earlier today.
[2022-07-15 17:29] LABS: Glucose,Whole Blood 133 mg/dL (70-110)
[2022-07-15 17:33] LABS: Basophils % (A) 0 %; Eosinophils # (A) 0.3 k/uL (0-0.7); Eosinophils % (A) 2 %; HCT 28.2 % (39.0-53.0); HGB 9.1 gm/dL (13.0-17.5); Lymphocytes # (A) 1.2 k/uL (1.0-4.8); Lymphocytes % (A) 9 %; MCH 30.8 pg (25.0-35.0); MCHC 32.2 g/dL (31.0-37.0); MCV 95.5 fL (80.0-100.0); Mean Platelet Volume 7.9; Monocytes # (A) 0.9 k/uL (0-1.0); Monocytes % (A) 7 %; Neutrophils # (A) 11.2 k/uL (1.3-7.7); Neutrophils % (A) 81 %; Platelet Count 201 k/uL (150-450); RBC 2.95 m/uL (4.30-5.90); RDW 15.2 % (11.5-15.5); WBC 13.8 k/uL (3.8-10.6)
[2022-07-15 17:57] LABS: ALT 16 U/L (4-49); AST 19 U/L (17-59); African American GFR (CKD) 11 (>60 ml/min/1.73 sqM); Albumin 3.9 g/dL (3.5-5.0); Albumin/Globulin Ratio 1.2; Alkaline Phosphatase 57 U/L (38-126); Anion Gap 10 mmol/L; Blood Urea Nitrogen 67 mg/dL (9-20); Carbon Dioxide 28 mmol/L (22-30); Chloride 97 mmol/L (98-107); Globulin 3.2 g/dL; Glucose 128 mg/dL (74-99); Non-African American GFR(CKD) 10 (>60 ml/min/1.73 sqM); Potassium 4.5 mmol/L (3.5-5.1); Sodium 135 mmol/L (137-145); Total Bilirubin 0.5 mg/dL (0.2-1.3); Total Protein 7.1 g/dL (6.3-8.2)
[2022-07-15] MEDS: FINASTERIDE 5 MG TAB PO SCH (20:13)
[2022-07-15] MEDS: APIXABAN 5 MG TAB PO SCH (20:13)
[2022-07-15] MEDS: FAMOTIDINE 20 MG TAB PO SCH (20:13)
[2022-07-15 21:08] LABS: Glucose,Whole Blood 149 mg/dL (70-110)
[2022-07-16 05:15] LABS: Glucose,Whole Blood 130 mg/dL (70-110)
[2022-07-16] MEDS: INSULIN ASPART (NovoLOG) 100 UNIT/ML VIAL SQ SCH ×6 (05:24→17:16)
[2022-07-16] MEDS: INSULIN DETEMIR (LEVEMIR) 100 UNIT/ML SYR SQ SCH (06:29)
[2022-07-16] MEDS: CALCIUM ACETATE 667 MG TAB PO SCH ×3 (06:30→17:16)
[2022-07-16] MEDS: hydrALAZINE HCL 25 MG TAB PO SCH ×3 (06:30→21:00)
[2022-07-16] MEDS: FAMOTIDINE 20 MG TAB PO SCH (08:06)
[2022-07-16] MEDS: MULTIVITAMINS, THERA 1 EACH TAB PO SCH (08:06)
[2022-07-16] MEDS: APIXABAN 5 MG TAB PO SCH ×2 (08:07→21:00)
[2022-07-16] MEDS: METOPROLOL TARTRATE 25 MG TAB PO SCH ×2 (08:12→21:00)
--- NOTE | 2022-07-16 09:56 | P.NPCON ---
History of Present Illness - Reason for Consult end stage renal disease - History of Present Illness Reason for consultation: End-stage renal disease History of present illness: Patient is a 67-year-old male seen in consultation for end-stage renal disease. He is maintained on hemodialysis on Monday schedule. Patient was transferred from [facility] due to altered mental status and hallucinations. Patient is currently sitting up in bed. He is upset and wants to go home. Patient resides at [facility]. He is currently on room air. Blood pressure stable. Did not get dialysis yesterday. No fever or chills. No vomiting or diarrhea. No chest pain or shortness of breath. Patient has history of diabetes. Vital signs are stable. General: No acute distress. HEENT: Head exam is unremarkable. LUNGS: No audible rhonchi or wheezes. HEART: Rate and Rhythm are regular. ABDOMEN: Obese. Nontender. EXTREMITITES: 1+ edema. Past Medical History Past Medical History: Atrial Fibrillation, Heart Failure, COPD, Diabetes Mellitus, GERD/Reflux, Hearing Disorder / Deafness, Hyperlipidemia, Hypertension, Prostate Disorder, Sleep Apnea/CPAP/BIPAP Additional Past Medical History / Comment(s): CKD, BPH, psych admissions for suicide, iron def anemia, home o2, HF, dialysis M, W,FR History of Any Multi-Drug Resistant Organisms: None Reported Past Surgical History: Coronary Bypass/CABG Additional Past Surgical History / Comment(s): CABG X4 Past Psychological History: Depression Additional Psychological History / Comment(s): per pt sister, pt has a hx of suicidal ideation. Smoking Status: Never smoker Past Alcohol Use History: None Reported Past Drug Use History: Unable to Obtain Additional Drug Use History / Comment(s): per sister no alcohol, drug, smoking hx. pt hx of chewing tabacco. - Past Family History family Additional Family Medical History / Comment(s): dementia and cancer in his mother and father respectively Medications and Allergies Home Medications Medication Instructions Recorded Confirmed Type Acetaminophen Tab [Tylenol] 650 mg PO Q6H PRN 07/15/22 07/15/22 History Apixaban [Eliquis] 5 mg PO BID@0800,2000 07/15/22 07/15/22 History Calcium Acetate [Phoslo] 667 mg PO AC-TID 07/15/22 07/15/22 History Carbamide Peroxide [Debrox Otic] 5 drops BOTH EARS BID@1400,199907/15/22 07/15/22 History Famotidine 20 mg PO BID 07/15/22 07/15/22 History Finasteride [Proscar] 5 mg PO HS@199907/15/22 07/15/22 History INSULIN ASPART (NovoLOG) [NovoLOG 7 unit SQ AC-TID 07/15/22 07/15/22 History (formulary)] INSULIN ASPART (NovoLOG) [NovoLOG See Protocol SQ AC-TID 07/15/22 07/15/22 History (formulary)] Insulin Glargine,Hum.rec.anlog 20 units SQ DAILY@0800 07/15/22 07/15/22 History [Lantus Solostar Pen] Metoprolol Tartrate [Lopressor] 25 mg PO Q12HR@0800,199907/15/22 07/15/22 History Multivitamins, Thera [Multivitamin 1 tab PO DAILY@0800 07/15/22 07/15/22 History (formulary)] hydrALAZINE HCL [Apresoline] 25 mg PO TID@0600,1400,199907/15/22 07/15/22 History predniSONE See Taper PO DAILY@0800 07/15/22 07/15/22 History Allergies Allergy/AdvReac Type Severity Reaction Status Date / Time bee venom protein (honey bee) Allergy Unknown Verified 07/15/22 09:24 Physical Exam Vitals: Vital Signs Temp Pulse Pulse Resp BP BP Pulse Ox 07/16/22 08:16 95 07/16/22 07:22 97.8 F 64 19 146/78 95 07/16/22 01:45 97.5 F L 59 L 16 106/58 98 07/15/22 19:25 97.5 F L 59 L 16 97/63 100 07/15/22 18:37 18 07/15/22 14:43 57 L 18 149/87 95 07/15/22 12:00 57 L 18 158/84 98 Intake and Output 07/15/22 07/16/22 07/16/22 22:59 06:59 14:59 Output Total 4000 Balance -4000 Output: Urine 4000 Other: Voiding Method External Catheter # Bowel Movements 1 1 Weight 140.614 kg Results - Lab Results Most recent lab results Calcium 9.0 mg/dL (8.4-10.2) 07/15/22 17:15 07/15/22 17:15 07/15/22 17:15 Assessment and Plan Plan: Assessment: 1. End-stage renal disease maintained on hemodialysis on Monday schedule. Patient has a permacath which was recently placed after the initial one fell out. Also has an AV fistula which is now starting to be used. 2. Metabolic encephalopathy. Mentation currently appears to be at baseline. 3. Diabetes mellitus. 4. Chronic kidney disease mineral bone disease maintained on PhosLo. 5. Anemia of chronic disease. Rule out iron deficiency. Plan: Hemodialysis today. Check iron studies. Add Leonidas. Thank you for the consultation. I will continue to follow the patient with you during his hospital stay.
[2022-07-16 11:26] LABS: Glucose,Whole Blood 216 mg/dL (70-110)
[2022-07-16] MEDS ORDERED: DARBEPOETIN ALFA 40 MCG/0.4 ML SYRINGE SQ SCH (12:00)
[2022-07-16] MEDS: CARBAMIDE PEROXIDE 6.5% DROPS 15 ML BTL BOTH EARS SCH ×2 (15:14→21:00)
[2022-07-16 16:35] LABS: Glucose,Whole Blood 142 mg/dL (70-110)
[2022-07-16 18:19] LABS: % Iron Saturation 20.03 (15.00-50.00)
--- NOTE | 2022-07-16 18:36 | P.PN ---
Progress Note - Text Progress Note Date: 07/16/22 Chief Complaint: Altered mentation This is a 67-year-old patient, who is at the [facility]. Patient is very hard of hearing deaf was somewhat of a limited historian. Chronic stable medical conditions include atrial fibrillation, COPD, diabetes, GERD, hypertension, hyperlipidemia, obstructive sleep apnea, CK D on dialysis, BPH, coronary bypass. Normally patient is AO 3. He is also on hemodialysis. Patient denies any fever and chills. He has a cough with green sputum. Appetite is fair. No change in bowel pattern. Patient was initially sent in to [facility] with altered mentation and hallucinations. There is a questionable infiltrate on chest x-r ay. Has his white count and no fever and no psychiatry is available at that facility patient was moved to our ER but accepted the patient. Keeps dozing off but does give some history. Hard of hearing but here is better through his right ear Admitted with acute metabolic encephalopathy. Pneumonia. Questionable hallucinations. 07/16/2022: Laying in bed. Tired. Some cough. Some sputum. Appetite much improved today. No hallucinations noted. Hold off consulting psychiatry. Active Medications Acetaminophen (Acetaminophen Tab 325 Mg Tab) 650 mg PO Q6H PRN PRN Reason: Pain Apixaban (Apixaban 5 Mg Tab) 5 mg PO BID@0800,2000 [facility]; Protocol Last Admin: 07/16/22 08:07 Dose: 5 mg Calcium Acetate (Calcium Acetate 667 Mg Tab) 667 mg PO AC-TID [facility] Last Admin: 07/16/22 17:16 Dose: Not Given Calcium Carbonate/Glycine (Calcium Carbonate 500 Mg Chewable) 1,000 mg PO Q4HR PRN PRN Reason: Dyspepsia Carbamide Perox/Anhydrous Glycerin (Carbamide Peroxide 6.5% Drops 15 Ml Btl) 5 drops BOTH EARS BID@1400,2000 [facility] Last Admin: 07/16/22 15:14 Dose: 5 drops Darbepoetin Declan (Darbepoetin Declan 40 Mcg/0.4 Ml Syringe) 40 mcg SQ Q7D [facility] Last Admin: 07/16/22 12:21 Dose: 40 mcg Dextrose/Water (Dextrose 50% Syringe 50 Ml) 25 ml IVP PER PROTOCOL PRN; Protocol PRN Reason: Hypoglycemia Dextrose/Water (Dextrose 50% Syringe 50 Ml) 50 ml IVP PER PROTOCOL PRN; Protocol PRN Reason: Hypoglycemia Famotidine (Famotidine 20 Mg Tab) 20 mg PO BID [facility] Last Admin: 07/16/22 08:06 Dose: 20 mg Finasteride (Finasteride 5 Mg Tab) 5 mg PO HS@1999 [facility] Last Admin: 07/15/22 20:13 Dose: 5 mg Hydralazine HCl (Hydralazine Hcl 25 Mg Tab) 25 mg PO TID@0600,1399,1999 [facility] Last Admin: 07/16/22 15:14 Dose: 25 mg Ceftriaxone Sodium 1 gm/ (Sodium Chloride) 50 mls @ 100 mls/hr IVPB Q12HR [facility]; Protocol Last Admin: 07/16/22 08:07 Dose: 100 mls/hr Insulin Aspart (Insulin Aspart (Novolog) 100 Unit/Ml Vial) 4 unit SQ AC-TID [facility] Last Admin: 07/16/22 17:16 Dose: Not Given Insulin Aspart (Insulin Aspart (Novolog) 100 Unit/Ml Vial) 0 unit SQ AC-TID [facility]; Protocol Last Admin: 07/16/22 16:57 Dose: Not Given Insulin Detemir (Insulin Detemir (Levemir) 100 Unit/Ml Syr) 16 unit SQ DAILY@0700 [facility] Last Admin: 07/16/22 06:29 Dose: 16 unit Lactulose (Lactulose 20 Gm/30 Ml Cup) 20 gm PO DAILY PRN PRN Reason: Constipation Lorazepam (Lorazepam 0.5 Mg Tab) 0.5 mg PO Q6HR PRN PRN Reason: Anxiety Metoprolol Tartrate (Metoprolol Tartrate 25 Mg Tab) 25 mg PO Q12HR@799,1999 [facility] Last Admin: 07/16/22 08:12 Dose: 25 mg Multivitamins (Multivitamins, Thera 1 Each Tab) 1 each PO DAILY@0800 [facility] Last Admin: 07/16/22 08:06 Dose: 1 each Naloxone HCl (Naloxone 0.4 Mg/Ml 1 Ml Vial) 0.2 mg IV Q2M PRN PRN Reason: Opioid Reversal Ondansetron HCl (Ondansetron 4 Mg/2 Ml Vial) 4 mg IVP Q8HR PRN PRN Reason: Nausea And Vomiting Past medical history to include: Atrial fibrillation, CHF, COPD, diabetes, GERD, hypertension, hyperlipidemia, obstructive sleep apnea, CAD, BPH, CAD with bypass Social history: Patient denies smoking. At [facility]. Uses a wheelchair Physical examination: VITAL SIGNS: 97.8, 64, 19, 146.78, 95% room air GENERAL: Laying in bed, tired EYES: Pupils equal. Conjunctiva normal. HEENT: External appearance of nose and ears normal, oral cavity grossly normal. Decreased hearing especially in the left ear NECK: JVD not raised; masses not palpable. HEART: First and second heart sounds are normal; no edema. LUNGS: Respiratory rate increased; decreased breath sounds. ABDOMEN: Soft, nontender, liver spleen not palpable, no masses palpable. PSYCH: Patient knows that he is in the hospital, knows the year thinks is . MUSCULOSKELETAL:No Clubbing/cyanosis;muscles-grossly intact, OA INVESTIGATIONS, reviewed in the clinical context: July 15: White count 3.8 hemoglobin 9.1 platelets 201 potassium 4.5 BUN 67 creatinine 5.6 EKG tracing personally reviewed by me-no sinus rhythm Chest x-ray film personally reviewed by me-probable infiltrate Assessment plan: -Acute mental status alteration. Seems encephalopathic. : Better - Probable pneumonia. Suspect gram-negative organism IV ceftriaxone -End-stage kidney disease on hemodialysis Nephrology following. Due for hemodialysis today. -Persistent atrial fibrillation, rate controlled Metoprolol, eliquis -Chronic congestive heart failure, EF not known Follow fluid status -COPD Albuterol when necessary -Diabetes mellitus type 2 chronically on insulin Follow Accu-Cheks -GERD PPI -Hyperlipidemia -Essential hypertension Lopressor. Hydralazine -BPH Proscar -CAD with a prior history of coronary bypass Lopressor -Full code Oral intake better. Continue IV ceftriaxone. Up in chair as tolerated.
[2022-07-16 20:25] LABS: Glucose,Whole Blood 87 mg/dL (70-110)
[2022-07-16 20:25] LABS: Glucose,Whole Blood 87 mg/dL (70-110)
[2022-07-16] MEDS: FINASTERIDE 5 MG TAB PO SCH (21:00)
[2022-07-17 06:22] LABS: Glucose,Whole Blood 182 mg/dL (70-110)
[2022-07-17] MEDS: INSULIN ASPART (NovoLOG) 100 UNIT/ML VIAL SQ SCH ×6 (06:25→17:22)
[2022-07-17] MEDS: INSULIN DETEMIR (LEVEMIR) 100 UNIT/ML SYR SQ SCH (06:26)
[2022-07-17] MEDS: CALCIUM ACETATE 667 MG TAB PO SCH ×3 (06:26→17:22)
[2022-07-17] MEDS: hydrALAZINE HCL 25 MG TAB PO SCH ×3 (06:26→21:07)
[2022-07-17] MEDS: METOPROLOL TARTRATE 25 MG TAB PO SCH ×2 (08:49→21:08)
[2022-07-17] MEDS: MULTIVITAMINS, THERA 1 EACH TAB PO SCH (08:49)
[2022-07-17] MEDS: FAMOTIDINE 20 MG TAB PO SCH ×2 (08:49→21:08)
[2022-07-17] MEDS: APIXABAN 5 MG TAB PO SCH ×2 (08:49→21:07)
--- NOTE | 2022-07-17 10:19 | P.PN ---
Subjective Patient seen in follow-up for end-stage renal disease. He is maintained on hemodialysis on Monday schedule. Patient is frustrated and wants to be discharged. Denies chest pain or shortness of breath. Vital signs are stable. General no acute distress. HEENT: Head exam is unremarkable. LUNGS: No audible rhonchi or wheezes. HEART: Rate and Rhythm are regular. ABDOMEN: Obese. Nontender. EXTREMITITES: No edema. Objective - Vital Signs Vital signs: Vital Signs Temp 97.5 F L 07/17/22 07:20 Pulse 61 07/17/22 07:20 Resp 18 07/17/22 07:20 BP 136/65 07/17/22 07:20 Pulse Ox 96 07/17/22 08:06 FiO2 Intake & Output 07/16/22 07/17/22 07/17/22 18:59 06:59 18:59 Intake Total 50 500 Output Total 225 2700 Balance -175 -2200 Intake: Intake, IV Titration 50 Amount cefTRIAXone 1 gm In 50 Sodium Chloride 0.9% 50 ml @ 100 mls/hr IVPB Q12HR [facility] Rx#:[id number] Hemodialysis 500 Output: Urine 225 200 Hemodialysis 2500 Other: Voiding Method External Catheter # Bowel Movements 1 - Labs CBC & Chem 7: 07/15/22 17:15 07/15/22 17:15 Labs: Abnormal Lab Results - Last 24 Hours (Table) 07/15/22 07/16/22 07/16/22 Range/Units 17:15 11:24 16:33 POC Glucose (mg/dL) 216 H 142 H (70-110) mg/dL Iron 57 L (65-175) ug/dL Ferritin 542.0 H (22.0-322.0) ng/mL 07/17/22 Range/Units 06:11 POC Glucose (mg/dL) 182 H (70-110) mg/dL Iron (65-175) ug/dL Ferritin (22.0-322.0) ng/mL Assessment and Plan Plan: Assessment: 1. End-stage renal disease maintained on hemodialysis on Monday schedule. Patient has a permacath which was recently placed after the initial one fell out. Also has an AV fistula which is now starting to be used. 2. Metabolic encephalopathy. Mentation currently appears to be at baseline. 3. Diabetes mellitus. 4. Chronic kidney disease mineral bone disease maintained on PhosLo. 5. Anemia of chronic disease. Mild iron deficiency noted. On Aranesp. Plan: Hemodialysis tomorrow. IV iron 2 doses.
[2022-07-17] MEDS: SODIUM FERRIC GLUCONAT-SUCROSE 125 MG in SODIUM CHLORIDE 0.9% 100 ML IVPB SCH (11:06)
[2022-07-17 11:29] LABS: Glucose,Whole Blood 157 mg/dL (70-110)
--- NOTE | 2022-07-17 13:17 | P.PN ---
Progress Note - Text Progress Note Date: 07/17/22 Chief Complaint: Altered mentation This is a 67-year-old patient, who is at the [facility]. Patient is very hard of hearing deaf was somewhat of a limited historian. Chronic stable medical conditions include atrial fibrillation, COPD, diabetes, GERD, hypertension, hyperlipidemia, obstructive sleep apnea, CK D on dialysis, BPH, coronary bypass. Normally patient is AO 3. He is also on hemodialysis. Patient denies any fever and chills. He has a cough with green sputum. Appetite is fair. No change in bowel pattern. Patient was initially sent in to [facility] with altered mentation and hallucinations. There is a questionable infiltrate on chest x-r ay. Has his white count and no fever and no psychiatry is available at that facility patient was moved to our ER but accepted the patient. Keeps dozing off but does give some history. Hard of hearing but here is better through his right ear Admitted with acute metabolic encephalopathy. Pneumonia. Questionable hallucinations. 07/16/2022: Laying in bed. Tired. Some cough. Some sputum. Appetite much improved today. No hallucinations noted. Hold off consulting psychiatry. 07/17/2022: Sitting at edge of the bed. Had his breakfast. Give for next hemodialysis tomorrow. No hallucinations. This very symptoms better. IV ceftriaxone. IV iron. Active Medications Acetaminophen (Acetaminophen Tab 325 Mg Tab) 650 mg PO Q6H PRN PRN Reason: Pain Apixaban (Apixaban 5 Mg Tab) 5 mg PO BID@0800,2000 [facility]; Protocol Last Admin: 07/17/22 08:49 Dose: 5 mg Calcium Acetate (Calcium Acetate 667 Mg Tab) 667 mg PO AC-TID [facility] Last Admin: 07/17/22 12:11 Dose: 667 mg Calcium Carbonate/Glycine (Calcium Carbonate 500 Mg Chewable) 1,000 mg PO Q4HR PRN PRN Reason: Dyspepsia Carbamide Perox/Anhydrous Glycerin (Carbamide Peroxide 6.5% Drops 15 Ml Btl) 5 drops BOTH EARS BID@1400,2000 [facility] Last Admin: 07/16/22 21:00 Dose: 5 drops Darbepoetin Declan (Darbepoetin Declan 40 Mcg/0.4 Ml Syringe) 40 mcg SQ Q7D [facility] Last Admin: 07/16/22 12:21 Dose: 40 mcg Dextrose/Water (Dextrose 50% Syringe 50 Ml) 25 ml IVP PER PROTOCOL PRN; Protocol PRN Reason: Hypoglycemia Dextrose/Water (Dextrose 50% Syringe 50 Ml) 50 ml IVP PER PROTOCOL PRN; Protocol PRN Reason: Hypoglycemia Famotidine (Famotidine 20 Mg Tab) 20 mg PO BID [facility] Last Admin: 07/17/22 08:49 Dose: 20 mg Finasteride (Finasteride 5 Mg Tab) 5 mg PO HS@1999 [facility] Last Admin: 07/16/22 21:00 Dose: 5 mg Hydralazine HCl (Hydralazine Hcl 25 Mg Tab) 25 mg PO TID@0600,1400,1999 [facility] Last Admin: 07/17/22 06:26 Dose: 25 mg Ceftriaxone Sodium 1 gm/ (Sodium Chloride) 50 mls @ 100 mls/hr IVPB Q12HR [facility]; Protocol Last Admin: 07/17/22 08:49 Dose: 100 mls/hr Ferric Sodium Gluconate 125 mg (/ Sodium Chloride) 110 mls @ 100 mls/hr IVPB DAILY [facility] Stop: 07/19/22 10:31 Last Admin: 07/17/22 11:06 Dose: 100 mls/hr Insulin Aspart (Insulin Aspart (Novolog) 100 Unit/Ml Vial) 4 unit SQ AC-TID [facility] Last Admin: 07/17/22 12:10 Dose: 4 unit Insulin Aspart (Insulin Aspart (Novolog) 100 Unit/Ml Vial) 0 unit SQ AC-TID [facility]; Protocol Last Admin: 07/17/22 12:11 Dose: 3 unit Insulin Detemir (Insulin Detemir (Levemir) 100 Unit/Ml Syr) 20 unit SQ DAILY@0700 [facility] Last Admin: 07/17/22 06:26 Dose: 20 unit Lactulose (Lactulose 20 Gm/30 Ml Cup) 20 gm PO DAILY PRN PRN Reason: Constipation Lorazepam (Lorazepam 0.5 Mg Tab) 0.5 mg PO Q6HR PRN PRN Reason: Anxiety Metoprolol Tartrate (Metoprolol Tartrate 25 Mg Tab) 25 mg PO Q12HR@0800,1999 [facility] Last Admin: 07/17/22 08:49 Dose: 25 mg Multivitamins (Multivitamins, Thera 1 Each Tab) 1 each PO DAILY@0800 [facility] Last Admin: 07/17/22 08:49 Dose: 1 each Naloxone HCl (Naloxone 0.4 Mg/Ml 1 Ml Vial) 0.2 mg IV Q2M PRN PRN Reason: Opioid Reversal Ondansetron HCl (Ondansetron 4 Mg/2 Ml Vial) 4 mg IVP Q8HR PRN PRN Reason: Nausea And Vomiting Past medical history to include: Atrial fibrillation, CHF, COPD, diabetes, GERD, hypertension, hyperlipidemia, obstructive sleep apnea, CAD, BPH, CAD with bypass Social history: Patient denies smoking. At [facility]. Uses a wheelchair Physical examination: VITAL SIGNS: 97.5, 61, 18, 1 36 x 65, 98% on 2 L GENERAL: Sitting at the edge of the bed, comfortable EYES: Pupils equal. Conjunctiva normal. HEENT: External appearance of nose and ears normal, oral cavity grossly normal. Decreased hearing especially in the left ear NECK: JVD not raised; masses not palpable. HEART: First and second heart sounds are normal; no edema. LUNGS: Respiratory rate normal; decreased breath sounds. ABDOMEN: Soft, nontender, liver spleen not palpable, no masses palpable. PSYCH: Able to answer simple questions hold a simple conversation MUSCULOSKELETAL:No Clubbing/cyanosis;muscles-grossly intact, OA INVESTIGATIONS, reviewed in the clinical context: July 15: White count 3.8 hemoglobin 9.1 platelets 201 potassium 4.5 BUN 67 creatinine 5.6 EKG tracing personally reviewed by me-no sinus rhythm Chest x-ray film personally reviewed by me-probable infiltrate Assessment plan: -Acute mental status alteration. Delirium and Metabolic encephalopathic. : Better - Probable pneumonia. Suspect gram-negative organism IV ceftriaxone -End-stage kidney disease on hemodialysis Nephrology following. Due for hemodialysis today. -Persistent atrial fibrillation, rate controlled Metoprolol, eliquis -Chronic congestive heart failure, EF not known Follow fluid status -COPD Albuterol when necessary -Diabetes mellitus type 2 chronically on insulin Follow Accu-Cheks -GERD PPI -Hyperlipidemia -Essential hypertension Lopressor. Hydralazine -BPH Proscar -CAD with a prior history of coronary bypass Lopressor -Full code Continue IV ceftriaxone. Hemodialysis tomorrow. Return to [facility] tomorrow. After dialysis
[2022-07-17] MEDS: CARBAMIDE PEROXIDE 6.5% DROPS 15 ML BTL BOTH EARS SCH ×2 (14:49→21:08)
[2022-07-17 17:04] LABS: Glucose,Whole Blood 122 mg/dL (70-110)
[2022-07-17 20:09] LABS: Glucose,Whole Blood 193 mg/dL (70-110)
[2022-07-17] MEDS: FINASTERIDE 5 MG TAB PO SCH (21:08)
[2022-07-18 06:29] LABS: Glucose,Whole Blood 215 mg/dL (70-110)
[2022-07-18] MEDS: CALCIUM ACETATE 667 MG TAB PO SCH ×2 (06:41→13:06)
[2022-07-18] MEDS: hydrALAZINE HCL 25 MG TAB PO SCH ×2 (06:41→15:18)
[2022-07-18] MEDS: INSULIN DETEMIR (LEVEMIR) 100 UNIT/ML SYR SQ SCH (06:42)
[2022-07-18] MEDS: INSULIN ASPART (NovoLOG) 100 UNIT/ML VIAL SQ SCH ×4 (06:42→13:06)
[2022-07-18] MEDS: MULTIVITAMINS, THERA 1 EACH TAB PO SCH (08:19)
[2022-07-18] MEDS: METOPROLOL TARTRATE 25 MG TAB PO SCH (08:19)
[2022-07-18] MEDS: APIXABAN 5 MG TAB PO SCH (08:19)
[2022-07-18] MEDS: FAMOTIDINE 20 MG TAB PO SCH (08:19)
--- NOTE | 2022-07-18 11:11 | P.PN ---
Subjective Patient seen in follow-up for end-stage renal disease. He is maintained on hemodialysis on Monday schedule. Wants to go home. Denies chest pain or shortness of breath. Tolerating dialysis well. Vital signs are stable. General no acute distress. HEENT: Head exam is unremarkable. LUNGS: No audible rhonchi or wheezes. HEART: Rate and Rhythm are regular. ABDOMEN: Obese. Nontender. EXTREMITITES: No edema. Objective - Vital Signs Vital signs: Vital Signs Temp 98.6 F 07/18/22 06:56 Pulse 56 L 07/18/22 06:56 Resp 18 07/18/22 06:56 BP 159/92 07/18/22 06:56 Pulse Ox 99 07/18/22 08:32 FiO2 Intake & Output 07/17/22 07/18/22 07/18/22 18:59 06:59 18:59 Other: Voiding Method External Catheter Urinal # Voids 1 3 - Labs CBC & Chem 7: 07/15/22 17:15 07/15/22 17:15 Labs: Abnormal Lab Results - Last 24 Hours (Table) 07/17/22 07/17/22 07/17/22 Range/Units 11:27 17:02 20:07 POC Glucose (mg/dL) 157 H 122 H 193 H (70-110) mg/dL 07/18/22 Range/Units 06:27 POC Glucose (mg/dL) 215 H (70-110) mg/dL Assessment and Plan Plan: Assessment: 1. End-stage renal disease maintained on hemodialysis on Monday schedule. Patient has a permacath which was recently placed after the initial one fell out. Also has an AV fistula which is now starting to be used. 2. Metabolic encephalopathy. Mentation currently appears to be at baseline. 3. Diabetes mellitus. 4. Chronic kidney disease mineral bone disease maintained on PhosLo. 5. Anemia of chronic disease. Mild iron deficiency noted. On . Plan: Currently seen while undergoing hemodialysis. Nexium and on Monday. Maintain IV iron. Stable for discharge back to [facility] from nephrology standpoint.
[2022-07-18 11:48] LABS: Glucose,Whole Blood 143 mg/dL (70-110)
[2022-07-18 12:35] VITALS: BP 140/70; PULSE 62
--- NOTE | 2022-07-18 12:49 | P.DS ---
Providers Date of admission: 07/15/22 09:19 Expected date of discharge: 07/18/22 Attending physician: Smooth Victor Consults: 07/15/22 09:19 Consult Physician Urgent Consulting Provider: Nirmala Us Consult Reason/Comments: Kidney failure Do you want consulting provider notified?: Yes Primary care physician: Donita Bautista, Hospital Course: Chief Complaint: Altered mentation This is a 67-year-old patient, who is at the [facility]. Patient is very hard of hearing deaf was somewhat of a limited historian. Chronic stable medical conditions include atrial fibrillation, COPD, diabetes, GERD, hypertension, hyperlipidemia, obstructive sleep apnea, CK D on dialysis, BPH, coronary bypass. Normally patient is AO 3. He is also on hemodialysis. Patient denies any fever and chills. He has a cough with green sputum. Appetite is fair. No change in bowel pattern. Patient was initially sent in to [facility] with altered mentatio n and hallucinations. There is a questionable infiltrate on chest x-ray. Has his white count and no fever and no psychiatry is available at that facility patient was moved to our ER but accepted the patient. Keeps dozing off but does give some history. Hard of hearing but here is better through his right ear Admitted with acute metabolic encephalopathy. Pneumonia. Questionable hallucinations. 07/16/2022: Laying in bed. Tired. Some cough. Some sputum. Appetite much improved today. No hallucinations noted. Hold off consulting psychiatry. 07/17/2022: Sitting at edge of the bed. Had his breakfast. Give for next hemodialysis tomorrow. No hallucinations. This very symptoms better. IV ceftriaxone. IV iron. 07/18/2022: Getting hemodialyzed today. Doing well. Minimal respiratory symptoms. Eating well. Discussion and discharge planning more than 35 minutes Past medical history to include: Atrial fibrillation, CHF, COPD, diabetes, GERD, hypertension, hyperlipidemia, obstructive sleep apnea, CAD, BPH, CAD with bypass Social history: Patient denies smoking. At [facility]. Uses a wheelchair Physical examination: VITAL SIGNS: 97.9, 62, 20, 140/70, 99% on 2 L GENERAL: Awake comfortable EYES: Pupils equal. Conjunctiva normal. HEENT: External appearance of nose and ears normal, oral cavity grossly normal. Decreased hearing especially in the left ear NECK: JVD not raised; masses not palpable. HEART: First and second heart sounds are normal; no edema. LUNGS: Respiratory rate normal; decreased breath sounds. ABDOMEN: Soft, nontender, liver spleen not palpable, no masses palpable. PSYCH: Able to answer simple questions hold a simple conversation MUSCULOSKELETAL:No Clubbing/cyanosis;muscles-grossly intact, OA INVESTIGATIONS, reviewed in the clinical context: July 15: White count 3.8 hemoglobin 9.1 platelets 201 potassium 4.5 BUN 67 creatinine 5.6 EKG tracing personally reviewed by me-no sinus rhythm Chest x-ray film personally reviewed by me-probable infiltrate Assessment plan: -Acute mental status alteration. Delirium and Metabolic encephalopathic. : Better - Probable pneumonia. Suspect gram-negative organism IV ceftriaxone. Complete 2 days of Ceftin 250 mg twice a day -End-stage kidney disease on hemodialysis Nephrology following. hemodialysis today. -Persistent atrial fibrillation, rate controlled Metoprolol, eliquis -Chronic congestive heart failure, EF not known Follow fluid status -COPD Albuterol when necessary -Diabetes mellitus type 2 chronically on insulin Follow Accu-Cheks -GERD PPI -Hyperlipidemia -Essential hypertension Lopressor 25 twice a day. Hydralazine 25 3 times a day -BPH Proscar -Hard of hearing, hears better through the right ear -CAD with a prior history of coronary bypass Lopressor -Full code Disposition: [facility] Plan - Discharge Summary Discharge Rx Participant: No New Discharge Prescriptions: New Cefuroxime [Ceftin] 250 mg PO BID #4 tab Continue INSULIN ASPART (NovoLOG) [NovoLOG (formulary)] See Protocol SQ AC-TID INSULIN ASPART (NovoLOG) [NovoLOG (formulary)] 7 unit SQ AC-TID hydrALAZINE HCL [Apresoline] 25 mg PO TID@0600,1400,1999 Famotidine 20 mg PO BID Apixaban [Eliquis] 5 mg PO BID@0800,1999 Insulin Glargine,Hum.rec.anlog [Lantus Solostar Pen] 20 units SQ DAILY@0800 Acetaminophen Tab [Tylenol] 650 mg PO Q6H PRN PRN Reason: Pain Calcium Acetate [PhosLo] 667 mg PO AC-TID Metoprolol Tartrate [Lopressor] 25 mg PO Q12HR@0800,1999 Carbamide Peroxide [Debrox Otic] 5 drops BOTH EARS BID@1399,1999 Multivitamins, Thera [Multivitamin (formulary)] 1 tab PO DAILY@0800 Finasteride [Proscar] 5 mg PO HS@1999 Discontinued predniSONE See Taper PO DAILY@0800 Discharge Medication List Acetaminophen Tab [Tylenol] 650 mg PO Q6H PRN 07/15/22 [History] Apixaban [Eliquis] 5 mg PO BID@0800,199907/15/22 [History] Calcium Acetate [PhosLo] 667 mg PO AC-TID 07/15/22 [History] Carbamide Peroxide [Debrox Otic] 5 drops BOTH EARS BID@1399,199907/15/22 [History] Famotidine 20 mg PO BID 07/15/22 [History] Finasteride [Proscar] 5 mg PO HS@199907/15/22 [History] INSULIN ASPART (NovoLOG) [NovoLOG (formulary)] 7 unit SQ AC-TID 07/15/22 [History] INSULIN ASPART (NovoLOG) [NovoLOG (formulary)] See Protocol SQ AC-TID 07/15/22 [History] Insulin Glargine,Hum.rec.anlog [Lantus Solostar Pen] 20 units SQ DAILY@0800 07/15/22 [History] Metoprolol Tartrate [Lopressor] 25 mg PO Q12HR@0800,199907/15/22 [History] Multivitamins, Thera [Multivitamin (formulary)] 1 tab PO DAILY@0800 07/15/22 [History] hydrALAZINE HCL [Apresoline] 25 mg PO TID@0600,1399,199907/15/22 [History] Cefuroxime [Ceftin] 250 mg PO BID #4 tab 07/18/22 [Rx] Follow up Appointment(s)/Referral(s): Donita Bautista DO [Primary Care Provider] - 1-2 days
[2022-07-18] MEDS: SODIUM FERRIC GLUCONAT-SUCROSE 125 MG in SODIUM CHLORIDE 0.9% 100 ML IVPB SCH (13:16)
[2022-07-18 14:15] VITALS: RESP 17; TEMP 97.8
[2022-07-18] MEDS: CARBAMIDE PEROXIDE 6.5% DROPS 15 ML BTL BOTH EARS SCH (15:19)
[2022-07-18 19:40] LABS: Hepatitis B Surface AB- Quant 3.5 mIU/mL; Hepatitis B Surface Antibody Nonreactive (Nonreactive)
[2022-07-18 23:40] LABS: Hepatitis B Surface Antigen Nonreactive (Nonreactive)
== END 2022-07-18 16:23 | disposition home or self-care (01) | DRG 177 ==
LOC: EC 08:21 → 4SSUR 09:19
PROVIDERS: ADMIT Hospitalist; ATTEND Hospitalist
PROC: 5A1D70Z Performance of Urinary Filtration, Intermittent, Less than 6 Hours Per Day (ICD-10-PCS; principal; 2022-07-18)
DX: J15.6 Pneumonia due to other Gram-negative bacteria (principal); G93.41 Metabolic encephalopathy; N18.6 End stage renal disease; Z20.822 Contact with and (suspected) exposure to COVID-19; J44.0 Chronic obstructive pulmonary disease with (acute) lower respiratory infection; I48.19 Other persistent atrial fibrillation; I13.2 Hypertensive heart and chronic kidney disease with heart failure and with stage 5 chronic kidney disease, or end stage renal disease; I25.10 Atherosclerotic heart disease of native coronary artery without angina pectoris; I50.9 Heart failure, unspecified; H91.90 Unspecified hearing loss, unspecified ear; E78.5 Hyperlipidemia, unspecified; K21.9 Gastro-esophageal reflux disease without esophagitis; K59.00 Constipation, unspecified; G47.33 Obstructive sleep apnea (adult) (pediatric); D50.9 Iron deficiency anemia, unspecified; D63.1 Anemia in chronic kidney disease; N40.0 Benign prostatic hyperplasia without lower urinary tract symptoms; Z79.01 Long term (current) use of anticoagulants; Z79.4 Long term (current) use of insulin; Z79.899 Other long term (current) drug therapy; Z95.1 Presence of aortocoronary bypass graft; Z99.2 Dependence on renal dialysis; Z91.030 Bee allergy status
CPT/HCPCS: 71046; 80053; 82140; 82728; 83540; 83550; 85025; 86706; 87340; 87635; 90935; 93005; 94760; 96360; 99285